=== PATIENT | female | born 1940 | race Caucasian/White ===

== ENCOUNTER 2016-08-17 18:29 | Inpatient (IN) | payer OTHER, BC ==
[2016-08-17 18:52] VITALS: BMI 21.9
--- NOTE | 2016-08-17 19:53 | PDOC ---
History of Present Illness - General History Source: [facility] Records Exam Limitations: Dementia - History of Present Illness Initial Comments: 08/17/16 22:13 76-year-old female with advanced dementia brought in by EMS after having been found on the floor for an unknown period of time and unable to stand due to right leg weakness and deformity. No further history is reported. Patient is unable to cooperate with the detailed H&P due to advanced dementia. REVIEW OF SYSTEMS Unable to obtain due to patient's advanced dementia EXAMINATION CONSTITUTIONAL: Awake and alert, does not follow commands,; in no apparent distress HEAD: Normocephalic; atraumatic EYES: PERRL; EOM intact ENMT: External appears normal; normal oropharynx NECK: Supple; non-tender; no cervical lymphadenopathy CARD: Normal S1, S2; 2/6 se murmur, no rubs, or gallops RESP: Normal chest excursion with respiration; breath sounds clear and equal bilaterally; no wheezes, rhonchi, or rales ABD: Soft, non-distended; non-tender; no palpable organomegaly, no palpable hernias PELVIS: Stable; EXT: Right lower extremity is shortened and externally rotated, with pain on palpation of the proximal femur and pain with an attempted logroll of the right lower extremity; distal pulses intact SKIN: Warm, dry, no rash NEURO: Awake and alert, speech is incoherent, moving upper extremities and left lower extremity without limitation;. <Shiva Reyes - Last Filed: 08/17/16 23:11> <Jared Cerda - Last Filed: 08/17/16 23:45> - General Chief Complaint: Injury Stated Complaint: INJURY Time Seen by Provider: 08/17/16 19:53 Past History - Past Medical History Anemia: No Asthma: Yes Cancer: No Cardiac Disorders: Yes (IRREGULAR HEARTBEAT. CARDIAC CATH 2011.) CVA: No COPD: No CHF: No Dementia: Yes Diabetes: No GI Disorders: No Disorders: Yes (FREQUENT URINATION) HTN: Yes Hypercholesterolemia: Yes Liver Disease: No Seizures: Yes Thyroid Disease: Yes - Surgical History Abdominal Surgery: Yes (TUBAL LIGATION) Appendectomy: No Cardiac Surgery: No Cholecystectomy: No Lung Surgery: No Neurologic Surgery: No Orthopedic Surgery: Yes (BILATERAL KNEE REPLACEMENTS) - Immunization History Immunization Up to Date: Yes - Psycho/Social/Smoking Cessation Hx Anxiety: Yes Suicidal Ideation: No Smoking Status: Yes Smoking History: Never smoked Have you smoked in the past 12 months: No Number of Cigarettes Smoked Daily: 0 Information on smoking cessation initiated: No Hx Alcohol Use: No Drug/Substance Use Hx: No Substance Use Type: None Hx Substance Use Treatment: No <Shiva Reyes - Last Filed: 08/17/16 23:11> <Jared Cerda - Last Filed: 08/17/16 23:45> - Past Medical History Allergies/Adverse Reactions: Allergies Allergy/AdvReac Type Severity Reaction Status Date / Time No Known Allergies Allergy Verified 08/17/16 18:53 Home Medications: Ambulatory Orders Acetaminophen [Tylenol -] 500 mg PO Q4H 08/17/16 Aspirin [ASA -] 81 mg PO DAILY 08/17/16 Atorvastatin Ca [Lipitor] 10 mg PO HS 08/17/16 Donepezil HCl [Aricept -] 10 mg PO DAILY 08/17/16 Ergocalciferol (Vitamin D2) [Vitamin D2] 2,000 unit PO DAILY 08/17/16 Fluticasone Propionate [Flovent Diskus] 100 mcg IH DAILY 08/17/16 Levothyroxine [Synthroid -] 25 mcg PO DAILY 08/17/16 Memantine HCl [Namenda -] 10 mg PO DAILY 08/17/16 Multivitamin [Poly-Vitamin] 1 each PO DAILY 08/17/16 Risperidone [Risperdal -] 0.5 mg PO DAILY 08/17/16 *Physical Exam - Vital Signs Last Vital Signs Temp Pulse Resp BP Pulse Ox 65 17 125/76 100 08/17/16 18:45 08/17/16 18:45 08/17/16 18:45 08/17/16 18:45 <Shiva Reyes - Last Filed: 08/17/16 23:11> - Vital Signs Last Vital Signs Temp Pulse Resp BP Pulse Ox 65 17 125/76 100 08/17/16 18:45 08/17/16 18:45 08/17/16 18:45 08/17/16 18:45 <Jared Cerda - Last Filed: 08/17/16 23:45> Heart Score/ECG Review - ECG Impressions Comment:: 08/17/16 23:45 Normal sinus rhythm at 72 bpm. T wave abnormality, consider lateral ischemia. Abnormal ECG. <Jared Cerda - Last Filed: 08/17/16 23:45> ED Treatment Course - LABORATORY CBC & Chemistry Diagram: 08/17/16 20:35 08/17/16 20:35 <Shiva Reyes - Last Filed: 08/17/16 23:11> - LABORATORY CBC & Chemistry Diagram: 08/17/16 20:35 08/17/16 22:36 - ADDITIONAL ORDERS Additional order review: Laboratory Results 08/17/16 08/17/16 08/17/16 20:35 20:35 20:35 INR 1.20 H Sodium Cancelled Potassium Cancelled Chloride Cancelled Carbon Dioxide Cancelled Anion Gap Cancelled BUN Cancelled Creatinine Cancelled Creat Clearance w eGFR Cancelled Random Glucose Cancelled Calcium Cancelled Total Bilirubin Cancelled AST Cancelled ALT Cancelled Alkaline Phosphatase Cancelled Total Protein Cancelled Albumin Cancelled Urine Color Urine Appearance Urine pH Urine Protein Urine Glucose (UA) Urine Ketones Urine Blood Urine Nitrite Urine Bilirubin Urine Urobilinogen Ur Leukocyte Esterase Blood Type Cancelled Antibody Screen Cancelled Spec Expiration Date Cancelled 08/17/16 20:14 INR Sodium Potassium Chloride Carbon Dioxide Anion Gap BUN Creatinine Creat Clearance w eGFR Random Glucose Calcium Total Bilirubin AST ALT Alkaline Phosphatase Total Protein Albumin Urine Color Yellow Urine Appearance Clear Urine pH 6.0 Urine Protein Negative Urine Glucose (UA) Negative Urine Ketones Negative Urine Blood Negative Urine Nitrite Negative Urine Bilirubin Negative Urine Urobilinogen Negative Ur Leukocyte Esterase Negative Blood Type Antibody Screen Spec Expiration Date 08/17/16 20:35 RBC 4.05 MCV 91.5 MCHC 32.9 RDW 13.9 MPV 8.9 Neutrophils % 76.0 Lymphocytes % 4.0 L D Monocytes % 11.0 H - RADIOLOGY Radiograph Interpretation: 08/17/16 22:28 EXAM#: TYPE/EXAM: RESULT: [id number] CT/HEAD CT WITHOUT CONTRAST Cranial CT without contrast Clinical information: status post fall There is no CT evidence of intracranial injury or calvarial fracture. No definite interval change is noted in comparison to a prior CT study of 01/20/2016. Moderate to marked periventricular and subcortical microvascular ischemic gliosis is seen. There is no discrete infarct. No gross mass lesion is identified. There is no extra- axial fluid collection. Involutional changes are noted with mild ventricular dilatation. Impression: No CT evidence of acute intracranial pathology. Reported By: Carroll Edwards MD 08/17/164 <Jared Cerda - Last Filed: 08/17/16 23:45> Medical Decision Making - Medical Decision Making 08/17/16 23:11 Patient 76-year-old female with advanced dementia who presents with signs and symptoms of acute right hip fracture. Pelvis and hip x-rays reveal a comminuted right intertrochanteric fracture. Patient will require admission for open reduction and internal fixation. Will admit. <Shiva Reyes - Last Filed: 08/17/16 23:11> - Medical Decision Making 08/17/16 22:[address] Talbert placed. Awaiting call back. 08/17/16 22:45 Dr. Talbert called into ER. Case discussed. Admit to hospitalist. <Jared Cerda - Last Filed: 08/17/16 23:45> *DC/Admit/Observation/Transfer - Discharge Dispostion Admit: Yes <Shiva Reyes - Last Filed: 08/17/16 23:11> - Attestations Scribe Attestion: 08/17/16 22:44 Documentation prepared by Jared Cerda, acting as biomedical electronics technician for Shiva Reyes MD. <Jared Cerda - Last Filed: 08/17/16 23:45> Diagnosis at time of Disposition: Fracture of hip, right, closed Qualifiers: Encounter type: initial encounter Qualified Code(s): S72.001A - Fracture of unspecified part of neck of right femur, initial encounter for closed fracture - Referrals Referrals: Kiel Xiong MD [Primary Care Provider] -
[2016-08-17 20:48] LABS: MCH 30.1 pg (25.7-33.7); MCHC 32.9 g/dl (32.0-36.0); MEAN CELL VOLUME 91.5 fl (80-96); MEAN PLT VOLUME 8.9 fl (7.5-11.1); PLATELET COUNT 252 K/MM3 (134-434); RDW 13.9 % (11.6-15.6); WHITE BLOOD COUNT 18.2 K/mm3 (4.0-10.0)
[2016-08-17 21:02] LABS: INR 1.2 (0.82-1.09); PROTHROMBIN TIME (PATIENT) 13.2 SEC (9.98-11.88)
[2016-08-17 21:12] LABS: URINE APPEARANCE CLEAR; URINE BILIRUBIN NEGATIVE (NEGATIVE); URINE BLOOD NEGATIVE (NEGATIVE); URINE COLOR YELLOW; URINE GLUCOSE (UA) NEGATIVE (NEGATIVE); URINE KETONE NEGATIVE (NEGATIVE); URINE LEUK ESTERASE NEGATIVE (NEGATIVE); URINE NITRITE NEGATIVE (NEGATIVE); URINE PROTEIN NEGATIVE (NEGATIVE); URINE UROBILINOGEN NEGATIVE mg/dL (0.2-1.0)
[2016-08-17] MEDS ORDERED: SODIUM CHLORIDE 500 ML IV STA (21:28)
[2016-08-17 21:39] LABS: PLATELET ESTIMATE ADEQUATE (NORMAL)
[2016-08-17 23:21] LABS: ALBUMIN 3.3 g/dl (3.4-5.0); ALK PHOS 122 U/L (45-117); ANION GAP 10 (8-16); BILIRUBIN,TOTAL 0.3 mg/dL (0.2-1.0); CO2 26 mmol/L (21-32); CREATININE 0.6 mg/dL (0.55-1.02); GLUCOSE,RANDOM 129 mg/dL (74-106); SGOT/AST 21 U/L (15-37); SGPT/ALT 31 U/L (12-78); TOT PROT 6.1 g/dl (6.4-8.2)
--- NOTE | 2016-08-17 23:47 | HP ---
CHIEF COMPLAINT: Fall, R- Hip Pain PCP: Dr. Talbert HISTORY OF PRESENT ILLNESS: This is a 76 y/o female with a history of Dementia, Alzheimer's. Who presents to the ED from [facility] [place] for s/p unwitnessed fall, R-hip pain. Patient has Dementia unable to obtain HPI. Per [facility] PCR, patient was found by staff sitting on the floor unable to bear weight at 1530 today. Patient denies pain. ER course was notable for: (1) CT Head- No acute ICH, chronic microvascular changes (2) Xray Pelvis/Hip: Comminuted Right Intertrochanteric Fx (3) WBC 18.2 Recent Travel: None PAST MEDICAL HISTORY: Dementia Alzheimer's Hypothyroidism HLD Asthma GERD PAST SURGICAL HISTORY: Cardiac Catheterization 2012 Bilateral Knee Replacement Tubal Ligation Social History: Smoking: Never Alcohol: None Drugs: None [facility] in [facility], ambulates with walker Family History: Unknown Allergies No Known Allergies Allergy (Verified 08/17/16 18:53) HOME MEDICATIONS: Home Medications Medication Instructions Recorded Acetaminophen [Tylenol -] 500 mg PO Q4H 08/17/16 Aspirin [ASA -] 81 mg PO DAILY 08/17/16 Atorvastatin Ca [Lipitor] 10 mg PO HS 08/17/16 Donepezil HCl [Aricept -] 10 mg PO DAILY 08/17/16 Ergocalciferol (Vitamin D2) 2,000 unit PO DAILY 08/17/16 [Vitamin D2] Fluticasone Propionate [Flovent 100 mcg IH DAILY 08/17/16 Diskus] Levothyroxine [Synthroid -] 25 mcg PO DAILY 08/17/16 Memantine HCl [Namenda -] 10 mg PO DAILY 08/17/16 Multivitamin [Poly-Vitamin] 1 each PO DAILY 08/17/16 Risperidone [Risperdal -] 0.5 mg PO DAILY 08/17/16 REVIEW OF SYSTEMS Unable to obtain ( per [facility]/ED record) CONSTITUTIONAL: Absent: fever, chills, diaphoresis, generalized weakness, malaise, loss of appetite, weight change HEENT: Absent: rhinorrhea, nasal congestion, throat pain, throat swelling, difficulty swallowing, mouth swelling, ear pain, eye pain, visual changes CARDIOVASCULAR: Absent: chest pain, syncope, palpitations, irregular heart rate, lightheadedness , peripheral edema RESPIRATORY: Absent: cough, shortness of breath, dyspnea with exertion, orthopnea, wheezing, stridor, hemoptysis GASTROINTESTINAL: Absent: abdominal pain, abdominal distension, nausea, vomiting, diarrhea, constipation, melena, hematochezia GENITOURINARY: Absent: dysuria, frequency, urgency, hesitancy, hematuria, flank pain, genital pain MUSCULOSKELETAL: right hip pain Absent: myalgia, arthralgia, joint swelling, back pain, neck pain SKIN: Absent: rash, itching, pallor HEMATOLOGIC/IMMUNOLOGIC: Absent: easy bleeding, easy bruising, lymphadenopathy, frequent infections ENDOCRINE: Absent: unexplained weight gain, unexplained weight loss, heat intolerance, cold intolerance NEUROLOGIC: unsteady gait Absent: headache, focal weakness or paresthesias, dizziness, seizure, mental status changes, bladder or bowel incontinence PSYCHIATRIC: Absent: anxiety, depression, suicidal or homicidal ideation, hallucinations. PHYSICAL EXAMINATION Vital Signs - 24 hr 08/17/16 18:45 Pulse Rate 65 Respiratory 17 Rate Blood Pressure 125/76 O2 Sat by Pulse 100 Oximetry (%) GENERAL: Awake, alert, and oriented to name only, in no acute distress. HEAD: Normal with no signs of trauma. EYES: Pupils equal, round and reactive to light, extraocular movements intact, sclera anicteric, conjunctiva clear. No lid lag. EARS, NOSE, THROAT: Ears normal, nares patent, oropharynx clear without exudates. Moist mucous membranes. NECK: Normal range of motion, supple without lymphadenopathy, JVD, or masses. LUNGS: Breath sounds equal, clear to auscultation bilaterally. No wheezes, and no crackles. No accessory muscle use. HEART: Regular rate and rhythm, normal S1 and S2 without murmur, rub or gallop. ABDOMEN: Soft, nontender, not distended, normoactive bowel sounds, no guarding, no rebound, no masses. No hepatomegaly or splenomegaly. MUSCULOSKELETAL: Normal range of motion RUE, LUE, LLE joints. No CVA tenderness. + bony deformities, R- hip tenderness, LROM RLE, + external rotation of R-leg, shortening UPPER EXTREMITIES: 2+ pulses, warm, well-perfused. No cyanosis. No clubbing. No peripheral edema. LOWER EXTREMITIES: 2+ pulses, warm, well-perfused. No calf tenderness. No peripheral edema. NEUROLOGICAL: Cranial nerves II-XII intact. Normal speech. Gait not observed. PSYCHIATRIC: Cooperative. Good eye contact. Appropriate mood and affect. SKIN: Warm, dry, normal turgor, no rashes or lesions noted, normal capillary refill. Laboratory Results - last 24 hr 08/17/16 08/17/16 08/17/16 20:14 20:35 20:35 WBC 18.2 H D RBC 4.05 Hgb 12.2 Hct 37.0 MCV 91.5 MCH 30.1 MCHC 32.9 RDW 13.9 Plt Count 252 MPV 8.9 Neutrophils % 76.0 Lymphocytes % 4.0 L D Monocytes % 11.0 H Band Neutrophils 9.0 Differential Comment Manual diff done Platelet Estimate Adequate Morphology Comment Slide scanned INR 1.20 H Sodium Potassium Chloride Carbon Dioxide Anion Gap BUN Creatinine Creat Clearance w eGFR Random Glucose Calcium Total Bilirubin AST ALT Alkaline Phosphatase Total Protein Albumin Urine Color Yellow Urine Appearance Clear Urine pH 6.0 Ur Specific [place] 1.020 Urine Protein Negative Urine Glucose (UA) Negative Urine Ketones Negative Urine Blood Negative Urine Nitrite Negative Urine Bilirubin Negative Urine Urobilinogen Negative Ur Leukocyte Esterase Negative Blood Type Antibody Screen Spec Expiration Date 08/17/16 08/17/16 20:35 20:35 WBC RBC Hgb Hct MCV MCH MCHC RDW Plt Count MPV Neutrophils % Lymphocytes % Monocytes % Band Neutrophils Differential Comment Platelet Estimate Morphology Comment INR Sodium Cancelled Potassium Cancelled Chloride Cancelled Carbon Dioxide Cancelled Anion Gap Cancelled BUN Cancelled Creatinine Cancelled Creat Clearance w eGFR Cancelled Random Glucose Cancelled Calcium Cancelled Total Bilirubin Cancelled AST Cancelled ALT Cancelled Alkaline Phosphatase Cancelled Total Protein Cancelled Albumin Cancelled Urine Color Urine Appearance Urine pH Ur Specific [place] Urine Protein Urine Glucose (UA) Urine Ketones Urine Blood Urine Nitrite Urine Bilirubin Urine Urobilinogen Ur Leukocyte Esterase Blood Type Cancelled Antibody Screen Cancelled Spec Expiration Date Cancelled - RADIOLOGY Radiograph Interpretation: 08/17/16 22:28 EXAM#: TYPE/EXAM: RESULT: [id number] CT/HEAD CT WITHOUT CONTRAST Cranial CT without contrast Clinical information: status post fall There is no CT evidence of intracranial injury or calvarial fracture. No definite interval change is noted in comparison to a prior CT study of 01/20/2016. Moderate to marked periventricular and subcortical microvascular ischemic gliosis is seen. There is no discrete infarct. No gross mass lesion is identified. There is no extra- axial fluid collection. Involutional changes are noted with mild ventricular dilatation. Impression: No CT evidence of acute intracranial pathology. Reported By: Carroll Edwards MD 08/17/16 [id number] ASSESSMENT/PLAN: This is a 76 y/o female with a PMHx of: Dementia, Alzheimer's, Hypothyroid, HLD , Asthma, GERD. Admit to M/S Right Hip Fracture for further evaluation of their emergent condition. Problems: 1. Right Hip Fx 2. Fall 3. Leukocytosis 4. Dementia 5. Alzheimer's 6. Hypothyroid 7. HLD 8. Asthma 9. GERD Plan: Ortho: Right Hip Fracture - Likely secondary to fall - Hip- Acute Fx - Appreciate Ortho consult - Bedrest - Pain Mgmt- Morphine, Tylenol - Monitor CBC, BMP - Monitor vitals - [facility] - EKG- reviewed - Will need Cardiology Consult for clearance - Fall Precautions - PT - DVT Prohylaxis Fall - unwitnessed - Fall Precautions 3. Leukocytosis - Likely inflammatory process vs infection (viral/bacterial) - Patient is currently afebrile - Monitor CBC 4. Psych: Dementia//Alzheimer's - Continue Namenda, Aricept, Risperdal 5. Hypothyroid - Continue Levothyroxine - TSH in am 6. Hyperlipidemia - Continue Lipitor - Monitor LFTs 7. Asthma - Continue Flovent HFA - Albuterol neb prn SOB 8. GERD - Not on medication - PPI prn 9. FEN - D51/2NS 42cc/hr - Replete lytes prn - Keep NPO until cleared by Ortho 10. DVT Prophylaxis - SCDs - Heparin SQ Code Status: Full Code Dispo: Requires Inpatient Care Problem List - Problem (1) Fracture of hip, right, closed Code(s): S72.001A - FRACTURE OF UNSP PART OF NECK OF RIGHT FEMUR, INIT Qualifiers: Encounter type: initial encounter Qualified Code(s): S72.001A - Fracture of unspecified part of neck of right femur, initial encounter for closed fracture (2) Fall Code(s): W19.XXXA - UNSPECIFIED FALL, INITIAL ENCOUNTER (3) Leukocytosis Code(s): D72.829 - ELEVATED WHITE BLOOD CELL COUNT, UNSPECIFIED (4) Dementia Code(s): F03.90 - UNSPECIFIED DEMENTIA WITHOUT BEHAVIORAL DISTURBANCE (5) Asthma Code(s): J45.909 - UNSPECIFIED ASTHMA, UNCOMPLICATED (6) Hip arthritis Code(s): M19.90 - UNSPECIFIED OSTEOARTHRITIS, UNSPECIFIED SITE (7) Hypothyroid Code(s): E03.9 - HYPOTHYROIDISM, UNSPECIFIED (8) DVT prophylaxis Code(s): THN4378 - Visit type - Emergency Visit Emergency Visit: Yes ED Registration Date: 08/17/16 Care time: The patient presented to the Emergency Department on the above date and was hospitalized for further evaluation of their emergent condition. - New Patient This patient is new to me today: Yes Date on this admission: 08/17/16 - Critical Care Critical Care patient: No
[2016-08-18] MEDS ORDERED: ACETAMINOPHEN 325 MG TABLET (FP) PO PRN (02:53)
[2016-08-18] MEDS ORDERED: morphine CARPU-JECT 2 MG/1 ML DISP.SYRIN IVPUSH PRN (02:54)
[2016-08-18] MEDS ORDERED: DEXTROSE 5%-0.45% SALINE 1,000 ML IV SCH (03:30)
[2016-08-18] MEDS: LEVOTHYROXINE NA 25 MCG TABLET (FP) PO SCH (06:54)
[2016-08-18] MEDS: risperiDONE 0.5 MG TABLET (FP) PO SCH ×3 (06:54→21:45)
[2016-08-18 07:18] LABS: BASOPHIL 0.3 % (0-2.0); EOSINOPHIL 0.5 % (0-4.5); MCHC 34.2 g/dl (32.0-36.0); MEAN CELL VOLUME 90.8 fl (80-96); MEAN PLT VOLUME 8.8 fl (7.5-11.1); NEUTROPHILS 75.2 % (42.8-82.8); PLATELET COUNT 203 K/MM3 (134-434); RDW 14.1 % (11.6-15.6); WHITE BLOOD COUNT 9.6 K/mm3 (4.0-10.0)
[2016-08-18 07:52] LABS: ANION GAP 7 (8-16); CALCIUM 8.7 mg/dL (8.5-10.1); CO2 28 mmol/L (21-32); CREATININE 0.5 mg/dL (0.55-1.02); GLUCOSE,RANDOM 115 mg/dL (74-106)
[2016-08-18] MEDS ORDERED: ENOXAPARIN NA (PORCINE) 40 MG/0.4 ML DISP.SYRIN SQ SCH (10:00)
[2016-08-18] MEDS: MEMANTINE HCL 10 MG TABLET (FP) PO SCH ×2 (11:24→21:46)
[2016-08-18] MEDS: DEXTROSE 5%-0.45% SALINE 1,000 ML IV SCH ×2 (12:04→18:34)
--- NOTE | 2016-08-18 12:37 | PN ---
Physical Exam: SUBJECTIVE: Patient seen and examined at the bedside. In no acute distress. OBJECTIVE: Ortho consulted with Dr. Mena Vital Signs Period Temp Pulse Resp BP Sys/Christie Pulse Ox Last 24 Hr 97.8 F-97.9 F 65-100 17-18 98-114/63-68 GENERAL: Asleep, easily arousable HEAD: Normal with no signs of trauma. EYES: PERRL, extraocular movements intact, sclera anicteric, conjunctiva clear. No ptosis. ENT: Ears normal, nares patent, oropharynx clear without exudates, moist mucous membranes. NECK: Trachea midline, full range of motion, supple. LUNGS: Anterior lung sounds clear to auscultation HEART: regular rate and rhythm ABDOMEN: Soft, nontender, nondistended, normoactive bowel sounds, no guarding, no rebound, no hepatosplenomegaly, no masses. EXTREMITIES: external rotation of right extremity with shortening s/p fall NEUROLOGICAL: Normal speech, gait not observed. PSYCH: Normal mood, normal affect. SKIN: Warm, dry, normal turgor, no rashes or lesions noted Laboratory Results - last 24 hr 08/18/16 08/18/16 06:20 06:20 WBC 9.6 D RBC 3.48 L Hgb 10.8 D Hct 31.6 L MCV 90.8 MCH 31.0 MCHC 34.2 RDW 14.1 Plt Count 203 MPV 8.8 Neutrophils % 75.2 Lymphocytes % 11.1 D Monocytes % 12.9 H Eosinophils % 0.5 Basophils % 0.3 Sodium 143 Potassium 4.2 Chloride 108 H Carbon Dioxide 28 Anion Gap 7 L BUN 15 D Creatinine 0.5 L Random Glucose 115 H Calcium 8.7 Active Medications Generic Name Dose Route Start Last Admin Trade Name Freq PRN Reason Stop Dose Admin Acetaminophen 650 mg 08/18/16 02:53 Tylenol - PO Q6H PRN FEVER OR PAIN Atorvastatin Calcium 10 mg 08/18/16 22:00 Lipitor - PO HS KOKI Donepezil HCl 10 mg 08/18/16 22:00 Aricept - PO HS KOKI Enoxaparin Sodium 40 mg 08/18/16 10:00 08/18/16 12:03 Lovenox - SQ Not Given DAILY KOKI Dextrose/Sodium Chloride 1,000 mls @ 100 mls/hr 08/18/16 11:41 08/18/16 12:04 D5-1/2ns - IV 100 mls/hr ASDIR KOKI Administration Levothyroxine Sodium 12.5 mcg 08/18/16 07:00 08/18/16 06:54 Synthroid - PO 12.5 mcg DAILY@0700 KOKI Administration Memantine 10 mg 08/18/16 10:00 08/18/16 11:24 Namenda - PO Not Given BID KOKI Morphine Sulfate 1 mg 08/18/16 02:54 08/18/16 03:12 Morphine Injection - IVPUSH 1 mg Q6H PRN Administration PAIN LEVEL 6-10 Risperidone 0.5 mg 08/18/16 06:00 08/18/16 06:54 Risperdal - PO 0.5 mg TID KOKI Administration ASSESSMENT/PLAN: Patient is a 76 year old female from [facility] with a significant past medical history of advanced dementia, cardiac catherization 2011, bilateral knee replacement, tubal ligation, hypothyroidism, HLD, asthma and GERD. She was brought in by EMS after having been found on the floor for an unknown period of time. She was noted to be unable to stand due to right leg pain, weakness and deformity. A hip/pelvis CT was performed which shows an acute intertrochanteric fracture. Imagin08/17/[address]: No evidence of acute intracranial pathology 08/17/2016 Hip/Pelvis CT 08/17/2016: acute right intertrochanteric fracture 08/17/2016 Chest Xray: no evidence of acute pulmonary disease Orthopedics: Acute intertrochanteric fracture s/p fall Assessment/Plan: Unwitnessed fall at nursing facility For surgical procedure for right hip today with Dr. Mena Patient is NPO, IVF fluids, vitals stable, labs reviewed EKG on 08/17/2016 shows NSR with t wave abnormality, and compared to EKG of [address]&T wave abnormality is seen with a t wave inversion on inferior leads, prolonged QT not evident of EKG of 08/17/2016 Troponin x 1 negative Hematology: Assessment/Plan: Leukocytosis now resolved 18.2>9.6 Likely secondary to acute inflammation Remains afebrile UA negative, UC pending Blood cultures ordered Cardiology: Cardiac catherization 2011 Assessment/Plan:On ASA 81mg daily, will hold pending surgical repair EKG on 08/17/2016 shows NSR with t wave abnormality, and compared to EKG of [address]&T wave abnormality is seen with a t wave inversion on inferior leads, prolonged QT not evident of EKG of 08/17/2016 Troponin negative x 1 Disposition: For surgical intervention today with Dr. Mena. Visit type - Emergency Visit Emergency Visit: Yes ED Registration Date: 08/17/16 Care time: The patient presented to the Emergency Department on the above date and was hospitalized for further evaluation of their emergent condition. - New Patient This patient is new to me today: Yes Date on this admission: 08/18/16 - Critical Care Critical Care patient: No - Discharge Referral Referred to [facility] Med P.C.: No
--- NOTE | 2016-08-18 13:10 | EKG ---
Test Reason : Blood Pressure : / mmHG Vent. Rate : 073 BPM Atrial Rate : 073 BPM P-R Int : 150 ms QRS Dur : 082 ms QT Int : 422 ms P-R-T Axes : 070 065 148 degrees QTc Int : 464 ms NORMAL SINUS RHYTHM T WAVE ABNORMALITY, CONSIDER LATERAL ISCHEMIA ABNORMAL ECG NO PREVIOUS ECGS AVAILABLE Confirmed by LILI TRISTAN MD ([id number]) on 08/18/2016 1:10:17 PM Referred By: Confirmed By:LILI TRISTAN MD
--- NOTE | 2016-08-18 15:19 | CONSULT ---
Consult - text type - Consultation Consultation Note: S: 76 y/o female with a PMHx significant for Dementia, Alzheimer's, Hypothyroid , HLD, CAD (s/p cardiac cath 2011 on ASA), Asthma, GERD admitted s/p unwitnessed fall at nursing facility. Unable to obtain hx from patient. In no distress. Patient's daughter states that she ambulates without assistance at baseline. Had a L hip IM nail placement last year. No previous R hip injury/ surgery. O: Vital Signs Temperature 99.5 F 08/18/16 14:31 Pulse Rate 69 08/18/16 14:31 Respiratory Rate 16 08/18/16 14:31 Blood Pressure 117/63 08/18/16 14:31 O2 Sat by Pulse Oximetry (%) 95 08/18/16 09:00 NAD. VSS. Afebrile. Laying comfortably in flat bed. R hip exam: No deformities noted. No skin lesions. Mild tenderness greater trochanter. Non-tender anteriorly over the hip. Limited ROM secondary to pain. EHL/FHL intact. NVID. R hip/pelvis x-ray images and report reviewed demonstrating an intertrochanter fracture A/P: 76 y/o female with a PMHx significant for Dementia, Alzheimer's, Hypothyroid, HLD, CAD (s/p cardiac cath 2011 on ASA), Asthma, GERD admitted s/p unwitnessed fall at nursing facility with R IT fx -I spoke to the patient's daughter regarding today's findings. Reviewed that there is a hip fracture present. Recommended treatment with placement of an IM nail. -I reviewed general surgical risks including DVT/PE, CVA, ACS, . I reviewed specific surgical risks including non-union, mal-union, post-operative pain, infection, hardware failure. -Patient's daughter elected to proceed. -Will plan for case to be added on tomorrow with Dr. Mena or Dr. Guillermo. -NPO at midnight -Hold ASA until procedure -NWB until procedure -Case discussed with Dr. Mena who was in agreement with the above clinical treatment plan.
[2016-08-18] MEDS ORDERED: PT OWN MED DRAWER 7, Y5N ONE (20:37)
[2016-08-18] MEDS ORDERED: ATORVASTATIN CA 10 MG TABLET (FP) PO SCH (22:00)
[2016-08-18] MEDS ORDERED: DONEPEZIL HCL 10 MG TABLET (FP) PO SCH (22:00)
[2016-08-19] MEDS: DEXTROSE 5%-0.45% SALINE 1,000 ML IV SCH ×2 (04:22→22:11)
[2016-08-19] MEDS ORDERED: PT OWN MED DRAWER 7, Y5N ONE (06:36)
[2016-08-19] MEDS: risperiDONE 0.5 MG TABLET (FP) PO SCH ×3 (06:50→22:31)
[2016-08-19] MEDS: LEVOTHYROXINE NA 25 MCG TABLET (FP) PO SCH (06:51)
[2016-08-19 09:17] LABS: BASOPHIL 0.3 % (0-2.0); EOSINOPHIL 1.9 % (0-4.5); MCH 31.4 pg (25.7-33.7); MCHC 34.1 g/dl (32.0-36.0); MEAN CELL VOLUME 91.8 fl (80-96); MEAN PLT VOLUME 8.7 fl (7.5-11.1); NEUTROPHILS 72.2 % (42.8-82.8); PLATELET COUNT 177 K/MM3 (134-434); WHITE BLOOD COUNT 9.4 K/mm3 (4.0-10.0)
[2016-08-19 09:35] LABS: ALBUMIN 2.6 g/dl (3.4-5.0); ALK PHOS 94 U/L (45-117); ANION GAP 5 (8-16); BILIRUBIN,TOTAL 0.4 mg/dL (0.2-1.0); CALCIUM 8.1 mg/dL (8.5-10.1); CO2 28 mmol/L (21-32); CREATININE 0.4 mg/dL (0.55-1.02); GLUCOSE,RANDOM 123 mg/dL (74-106); SGOT/AST 15 U/L (15-37); SGPT/ALT 22 U/L (12-78); TOT PROT 5.2 g/dl (6.4-8.2)
[2016-08-19] MEDS: MEMANTINE HCL 10 MG TABLET (FP) PO SCH ×2 (10:00→22:31)
--- NOTE | 2016-08-19 15:06 | PN ---
Physical Exam: SUBJECTIVE: Patient seen and examined at the bedside. Denies pain. OBJECTIVE: Patient scheduled for right hip gamma nail today Resume Lovenox tonight Vital Signs Period Temp Pulse Resp BP Sys/Christie Pulse Ox Last 24 Hr 97 F-97.9 F 67-102 18-20 125-136/62-70 94-95 GENERAL: Asleep, easily arousable HEAD: Normal with no signs of trauma. EYES: PERRL, extraocular movements intact, sclera anicteric, conjunctiva clear. No ptosis. ENT: Ears normal, nares patent, oropharynx clear without exudates, moist mucous membranes. NECK: Trachea midline, full range of motion, supple. LUNGS: Anterior lung sounds clear to auscultation HEART: regular rate and rhythm ABDOMEN: Soft, nontender, nondistended, normoactive bowel sounds, no guarding, no rebound, no hepatosplenomegaly, no masses. EXTREMITIES: external rotation of right extremity with shortening s/p fall NEUROLOGICAL: Normal speech, gait not observed. PSYCH: Normal mood, normal affect. SKIN: Warm, dry, normal turgor, no rashes or lesions noted Laboratory Results - last 24 hr 08/19/16 08/19/16 08:50 08:50 WBC 9.4 RBC 3.25 L Hgb 10.2 L Hct 29.8 L MCV 91.8 MCH 31.4 MCHC 34.1 RDW 14.0 Plt Count 177 MPV 8.7 Neutrophils % 72.2 Lymphocytes % 11.8 Monocytes % 13.8 H Eosinophils % 1.9 D Basophils % 0.3 Sodium 141 Potassium 3.8 Chloride 108 H Carbon Dioxide 28 Anion Gap 5 L BUN 8 D Creatinine 0.4 L Creat Clearance w eGFR > 60 Random Glucose 123 H Calcium 8.1 L Total Bilirubin 0.4 D AST 15 D ALT 22 D Alkaline Phosphatase 94 D Total Protein 5.2 L Albumin 2.6 L D Active Medications Generic Name Dose Route Start Last Admin Trade Name Freq PRN Reason Stop Dose Admin Acetaminophen 650 mg 08/18/16 02:53 08/18/16 23:40 Tylenol - PO 650 mg Q6H PRN Administration FEVER OR PAIN Atorvastatin Calcium 10 mg 08/18/16 22:00 08/18/16 21:46 Lipitor - PO 10 mg HS KOKI Administration Donepezil HCl 10 mg 08/18/16 22:00 08/18/16 21:45 Aricept - PO 10 mg HS KOKI Administration Enoxaparin Sodium 40 mg 08/18/16 10:00 08/18/16 12:03 Lovenox - SQ Not Given DAILY KOKI Dextrose/Sodium Chloride 1,000 mls @ 100 mls/hr 08/18/16 11:41 08/19/16 04:22 D5-1/2ns - IV 100 mls/hr ASDIR KOKI Administration Levothyroxine Sodium 12.5 mcg 08/18/16 07:00 08/19/16 06:51 Synthroid - PO 12.5 mcg DAILY@0700 KOKI Administration Memantine 10 mg 08/18/16 10:00 08/19/16 10:00 Namenda - PO Not Given BID KOKI Morphine Sulfate 1 mg 08/18/16 02:54 08/18/16 03:12 Morphine Injection - IVPUSH 1 mg Q6H PRN Administration PAIN LEVEL 6-10 Risperidone 0.5 mg 08/18/16 06:00 08/19/16 13:37 Risperdal - PO Not Given TID KOKI ASSESSMENT/PLAN: Patient is a 76 year old female from [facility] with a significant past medical history of advanced dementia, cardiac catherization 2011, bilateral knee replacement, tubal ligation, hypothyroidism, HLD, asthma and GERD. She was brought in by EMS after having been found on the floor for an unknown period of time. She was noted to be unable to stand due to right leg pain, weakness and deformity. A hip/pelvis CT was performed which shows an acute intertrochanteric fracture. Imagin08/17/[address]: No evidence of acute intracranial pathology 08/17/2016 Hip/Pelvis CT 08/17/2016: acute right intertrochanteric fracture 08/17/2016 Chest Xray: no evidence of acute pulmonary disease Orthopedics: Acute intertrochanteric fracture s/p fall on 08/17/16 Assessment/Plan: Unwitnessed fall at nursing facility For surgical procedure for right hip today with Dr. Mena Patient is NPO, IVF fluids, vitals stable, labs reviewed EKG on 08/17/2016 shows NSR with t wave abnormality, and compared to EKG of [address]&T wave abnormality is seen with a t wave inversion on inferior leads, prolonged QT not evident of EKG of 08/17/2016 Troponin x 1 negative Hematology: Assessment/Plan: Leukocytosis now resolved 18.2>9.4 Likely secondary to acute inflammation Remains afebrile UA negative, UC pending Blood cultures pending Cardiology: Cardiac catherization 2011 Assessment/Plan:On ASA 81mg daily, will hold pending surgical repair EKG on 08/17/2016 shows NSR with t wave abnormality, and compared to EKG of [address]&T wave abnormality is seen with a t wave inversion on inferior leads, prolonged QT not evident of EKG of 08/17/2016 Troponin negative x 1 F.E.N. Fluids: d5 1/2 @100cc/hr Electrolytes: within normal limits Nutrition: NPO for now, soft diet after procedure Prophylaxis: DVT: Resume Lovenox tonight after procedure GI: colace, miralax Disposition: For surgical intervention today with Dr. Mena. Visit type - Emergency Visit Emergency Visit: Yes ED Registration Date: 08/17/16 Care time: The patient presented to the Emergency Department on the above date and was hospitalized for further evaluation of their emergent condition. - New Patient This patient is new to me today: No - Critical Care Critical Care patient: No - Discharge Referral Referred to [facility] Med P.C.: No
[2016-08-19] MEDS ORDERED: MIDAZOLAM HCL 2 MG/2 ML SINGLE DOSE VIAL ONE (15:43)
[2016-08-19] MEDS ORDERED: ceFAZolin SODIUM 1 GM VIAL ONE (15:51)
[2016-08-19] MEDS ORDERED: PHENYLEPHRINE HCL 10 MG/1 ML SINGLE DOSE VIAL ONE (15:54)
[2016-08-19] MEDS ORDERED: ceFAZolin SODIUM 1 GM VIAL IVPB ONE (15:55)
--- NOTE | 2016-08-19 16:57 | OP ---
Operative Note - Note: Operative Date: 08/19/16 Pre-Operative Diagnosis: Right IT fx Operation: right hip IM nail Post-Operative Diagnosis: Same as Pre-op Surgeon: Luciano Guilelrmo Claims Clerk: Nahum Garcia Anesthesiologist/COOK RESTAURANT: Inderjit Boston Anesthesia: Spinal Estimated Blood Loss (mls): 150 Operative Report Dictated: Yes
[2016-08-19] MEDS ORDERED: ONDANSETRON 4 MG/2 ML VIAL IVPUSH PRN (16:59)
[2016-08-19] MEDS ORDERED: morphine CARPU-JECT 2 MG/1 ML DISP.SYRIN IVPUSH PRN (17:10)
[2016-08-19] MEDS: CEFAZOLIN (PRE-DOCKED) 50 ML IVPB SCH (18:31)
[2016-08-19] MEDS: LACTATED RINGERS SOLUTION 1,000 ML IV SCH (22:10)
[2016-08-19] MEDS: DOCUSATE SODIUM 100 MG CAPSULE (FP) PO SCH (22:30)
[2016-08-19] MEDS: DONEPEZIL HCL 10 MG TABLET (FP) PO SCH (22:31)
[2016-08-19] MEDS: CALCIUM 500MG/VIT-D 200 UNITS COMBO TABLET (FP) PO SCH (22:31)
[2016-08-19] MEDS: ATORVASTATIN CA 10 MG TABLET (FP) PO SCH (22:31)
[2016-08-20] MEDS: CEFAZOLIN (PRE-DOCKED) 50 ML IVPB SCH ×2 (01:46→10:55)
[2016-08-20] MEDS: ACETAMINOPHEN 325 MG TABLET (FP) PO PRN (02:00)
[2016-08-20] MEDS: DEXTROSE 5%-0.45% SALINE 1,000 ML IV SCH ×3 (02:50→17:54)
[2016-08-20] MEDS: LEVOTHYROXINE NA 25 MCG TABLET (FP) PO SCH (06:15)
[2016-08-20] MEDS: risperiDONE 0.5 MG TABLET (FP) PO SCH ×3 (06:15→21:24)
[2016-08-20] MEDS: DOCUSATE SODIUM 100 MG CAPSULE (FP) PO SCH ×4 (06:18→21:30)
[2016-08-20 07:39] LABS: BASOPHIL 0.3 % (0-2.0); EOSINOPHIL 1.5 % (0-4.5); MCH 31.7 pg (25.7-33.7); MCHC 34.9 g/dl (32.0-36.0); MEAN PLT VOLUME 8.7 fl (7.5-11.1); NEUTROPHILS 71.6 % (42.8-82.8); PLATELET COUNT 167 K/MM3 (134-434); RDW 14.2 % (11.6-15.6); WHITE BLOOD COUNT 10.5 K/mm3 (4.0-10.0)
[2016-08-20 08:11] LABS: ALBUMIN 2.3 g/dl (3.4-5.0); ALK PHOS 81 U/L (45-117); ANION GAP 6 (8-16); BILIRUBIN,TOTAL 0.6 mg/dL (0.2-1.0); CO2 28 mmol/L (21-32); CREATININE 0.5 mg/dL (0.55-1.02); GLUCOSE,RANDOM 121 mg/dL (74-106); SGOT/AST 20 U/L (15-37); SGPT/ALT 21 U/L (12-78); TOT PROT 4.7 g/dl (6.4-8.2)
[2016-08-20] MEDS: FERROUS SO4 325 MG TABLET (FP) PO SCH ×2 (08:36→17:13)
[2016-08-20] MEDS: ENOXAPARIN NA (PORCINE) 40 MG/0.4 ML DISP.SYRIN SQ SCH (10:55)
[2016-08-20] MEDS: CALCIUM 500MG/VIT-D 200 UNITS COMBO TABLET (FP) PO SCH ×2 (10:55→21:24)
[2016-08-20] MEDS: MEMANTINE HCL 10 MG TABLET (FP) PO SCH ×2 (10:55→21:24)
--- NOTE | 2016-08-20 13:10 | PN ---
Progress Note (short form) - Note Progress Note: ANESTHESIA POST OP NOTE: Patient seen at bedside. s/p Right gamma nailing of hip under spinal anesthesia and mild sedation post op day one. Patient appears back to mental baseline, confused and non cooperative, unable to answer questions about location or quality of pain, no apparent adverse anesthetic events. Motor function has returned. No further intervention from the department of anesthesia.
--- NOTE | 2016-08-20 15:14 | PN ---
Physical Exam: SUBJECTIVE: Patient seen and examined at the bedside, denies pain. OBJECTIVE: POD#1 right hip IM nail surgical repair Vital Signs Period Temp Pulse Resp BP Sys/Christie Pulse Ox Last 24 Hr 97.8 F-101.2 F 70-111 14-20 90-133/48-91 95-100 GENERAL: Asleep, easily arousable HEAD: Normal with no signs of trauma. EYES: PERRL, extraocular movements intact, sclera anicteric, conjunctiva clear. No ptosis. ENT: Ears normal, nares patent, oropharynx clear without exudates, moist mucous membranes. NECK: Trachea midline, full range of motion, supple. LUNGS: Anterior lung sounds clear to auscultation HEART: regular rate and rhythm ABDOMEN: Soft, nontender, nondistended, normoactive bowel sounds, no guarding, no rebound, no hepatosplenomegaly, no masses. EXTREMITIES: POD#1 right hip IM nail surgical repair NEUROLOGICAL: Normal speech, gait not observed. PSYCH: Normal mood, normal affect. SKIN: Warm, dry, normal turgor, no rashes or lesions noted Laboratory Results - last 24 hr 08/20/16 08/20/16 06:00 06:00 WBC 10.5 H RBC 2.75 L Hgb 8.7 L D Hct 25.0 L D MCV 91.0 MCH 31.7 MCHC 34.9 RDW 14.2 Plt Count 167 MPV 8.7 Neutrophils % 71.6 Lymphocytes % 12.9 Monocytes % 13.7 H Eosinophils % 1.5 Basophils % 0.3 Sodium 140 Potassium 3.8 Chloride 106 Carbon Dioxide 28 Anion Gap 6 L BUN 11 D Creatinine 0.5 L D Creat Clearance w eGFR > 60 Random Glucose 121 H Calcium 8.0 L Total Bilirubin 0.6 D AST 20 D ALT 21 Alkaline Phosphatase 81 Total Protein 4.7 L Albumin 2.3 L Active Medications Generic Name Dose Route Start Last Admin Trade Name Freq PRN Reason Stop Dose Admin Acetaminophen 650 mg 08/19/16 17:10 08/20/16 02:00 Tylenol - PO 650 mg Q6H PRN Administration FEVER OR PAIN Atorvastatin Calcium 10 mg 08/19/16 22:00 08/19/16 22:31 Lipitor - PO 10 mg HS KOKI Administration Calcium Carbonate/Cholecalciferol 1 tab 08/19/16 22:00 08/20/16 10:55 Os-Constantino 500+D - PO 1 tab BID KOKI Administration Docusate Sodium 100 mg 08/19/16 22:00 08/20/16 13:24 Colace - PO Not Given TID KOKI Donepezil HCl 10 mg 08/19/16 22:00 08/19/16 22:31 Aricept - PO 10 mg HS KOKI Administration Enoxaparin Sodium 40 mg 08/20/16 10:00 08/20/16 10:55 Lovenox - SQ 40 mg DAILY KOKI Administration Fentanyl 25 mcg 08/19/16 16:59 08/19/16 17:40 Sublimaze Injection - IVPUSH 08/22/16 17:00 25 mcg [id number] PRN Administration PAIN Ferrous Sulfate 325 mg 08/20/16 08:00 08/20/16 08:36 Feosol - PO 325 mg BIDWM KOKI Administration Cefazolin Sodium 50 mls @ 100 mls/hr 08/19/16 18:00 08/20/16 10:55 Ancef 1gm Ivpb (Pre-Docked) IVPB 08/20/16 16:59 100 mls/hr Q8H-IV KOKI Administration Lactated Ringer's 1,000 mls @ 75 mls/hr 08/19/16 17:00 08/19/16 22:10 Lactated Ringers Solution IV Not Given ASDIR KOKI Dextrose/Sodium Chloride 1,000 mls @ 100 mls/hr 08/19/16 17:10 08/20/16 11:21 D5-1/2ns - IV 100 mls/hr ASDIR KOKI Administration Levothyroxine Sodium 12.5 mcg 08/20/16 07:00 08/20/16 06:15 Synthroid - PO 12.5 mcg DAILY@0700 KOKI Administration Memantine 10 mg 08/19/16 22:00 08/20/16 10:55 Namenda - PO 10 mg BID KOKI Administration Morphine Sulfate 1 mg 08/19/16 17:10 Morphine Injection - IVPUSH Q6H PRN PAIN LEVEL 6-10 Risperidone 0.5 mg 08/19/16 22:00 08/20/16 13:24 Risperdal - PO 0.5 mg TID KOKI Administration ASSESSMENT/PLAN: Patient is a 76 year old female from [facility] with a significant past medical history of advanced dementia, cardiac catherization 2011, bilateral knee replacement, tubal ligation, hypothyroidism, HLD, asthma and GERD. She was brought in by EMS after having been found on the floor for an unknown period of time. She was noted to be unable to stand due to right leg pain, weakness and deformity. A hip/pelvis CT was performed which shows an acute intertrochanteric fracture. Imagin08/17/[address]: No evidence of acute intracranial pathology 08/17/2016 Hip/Pelvis CT 08/17/2016: acute right intertrochanteric fracture 08/17/2016 Chest Xray: no evidence of acute pulmonary disease Orthopedics: Acute intertrochanteric fracture s/p fall on 08/17/16 - POD#1 right hip IM nail surgical repair Assessment/Plan: Physical therapy, Lovenox 40mg daily Pain management with morphine 1mg q6 Hematology: Assessment/Plan: Mild leukocytosis, likely secondary to surgery, monitor TMAX 101.2 this a.m., monitor fever curve, on Ancef 1gm q8 Blood cultures ngtd Cardiology: Cardiac catherization 2011 Assessment/Plan:On ASA 81mg daily EKG on 08/17/2016 shows NSR with t wave abnormality, and compared to EKG of [address]&T wave abnormality is seen with a t wave inversion on inferior leads, prolonged QT not evident of EKG of 08/17/2016 Troponin negative x 1 F.E.N. Fluids: LR @75cc/hr Electrolytes: within normal limits Nutrition: regular diet Prophylaxis: DVT: Lovenox 40mg daily GI: colace, miralax Disposition: Discharge once cleared by surgery. DNR Visit type - Emergency Visit Emergency Visit: Yes ED Registration Date: 08/17/16 Care time: The patient presented to the Emergency Department on the above date and was hospitalized for further evaluation of their emergent condition. - New Patient This patient is new to me today: No - Critical Care Critical Care patient: No - Discharge Referral Referred to [facility] Med P.C.: No
[2016-08-20] MEDS ORDERED: PT OWN MED DRAWER 7, Y5N ONE (21:00)
[2016-08-20] MEDS: ATORVASTATIN CA 10 MG TABLET (FP) PO SCH (21:24)
[2016-08-20] MEDS: DONEPEZIL HCL 10 MG TABLET (FP) PO SCH (21:24)
[2016-08-21] MEDS: DEXTROSE 5%-0.45% SALINE 1,000 ML IV SCH ×3 (02:51→23:55)
[2016-08-21] MEDS: LEVOTHYROXINE NA 25 MCG TABLET (FP) PO SCH (06:10)
[2016-08-21] MEDS: risperiDONE 0.5 MG TABLET (FP) PO SCH ×3 (06:11→21:33)
[2016-08-21] MEDS: DOCUSATE SODIUM 100 MG CAPSULE (FP) PO SCH ×3 (06:17→21:32)
[2016-08-21] MEDS: LACTATED RINGERS SOLUTION 1,000 ML IV SCH ×2 (07:43→17:12)
[2016-08-21] MEDS: FERROUS SO4 325 MG TABLET (FP) PO SCH ×2 (07:43→17:26)
[2016-08-21 08:06] LABS: BASOPHIL 0.4 % (0-2.0); EOSINOPHIL 1.9 % (0-4.5); MCH 31.7 pg (25.7-33.7); MCHC 34.7 g/dl (32.0-36.0); MEAN CELL VOLUME 91.2 fl (80-96); MEAN PLT VOLUME 8.9 fl (7.5-11.1); NEUTROPHILS 70.9 % (42.8-82.8); PLATELET COUNT 175 K/MM3 (134-434); RDW 13.9 % (11.6-15.6); WHITE BLOOD COUNT 10.9 K/mm3 (4.0-10.0)
[2016-08-21 08:23] LABS: ALBUMIN 2.1 g/dl (3.4-5.0); ANION GAP 6 (8-16); BILIRUBIN,TOTAL 0.6 mg/dL (0.2-1.0); CO2 28 mmol/L (21-32); CREATININE 0.4 mg/dL (0.55-1.02); GLUCOSE,RANDOM 121 mg/dL (74-106); SGOT/AST 41 U/L (15-37); SGPT/ALT 44 U/L (12-78); TOT PROT 4.6 g/dl (6.4-8.2)
[2016-08-21 08:24] LABS: ALK PHOS 99 U/L (45-117)
[2016-08-21] MEDS ORDERED: PT OWN MED DRAWER 7, Y5N ONE ×3 (10:23→21:29)
[2016-08-21] MEDS: ENOXAPARIN NA (PORCINE) 40 MG/0.4 ML DISP.SYRIN SQ SCH (10:25)
[2016-08-21] MEDS: MEMANTINE HCL 10 MG TABLET (FP) PO SCH ×2 (10:25→21:32)
[2016-08-21] MEDS: POLYETHYLENE GLYCOL 3350 119 GM BTL PO SCH (10:25)
[2016-08-21] MEDS: CALCIUM 500MG/VIT-D 200 UNITS COMBO TABLET (FP) PO SCH ×2 (10:25→21:33)
--- NOTE | 2016-08-21 11:33 | PN ---
Progress Note, Physician History of Present Illness: Resting in bed. POD #2 s/p right gamma nail - Current Medication List Current Medications: Active Medications Acetaminophen (Tylenol -) 650 mg PO Q6H PRN PRN Reason: FEVER OR PAIN Last Admin: 08/20/16 02:00 Dose: 650 mg Atorvastatin Calcium (Lipitor -) 10 mg PO HS [facility] Last Admin: 08/20/16 21:24 Dose: 10 mg Calcium Carbonate/Cholecalciferol (Os-Constantino 500+D -) 1 tab PO BID [facility] Last Admin: 08/21/16 10:25 Dose: 1 tab Docusate Sodium (Colace -) 100 mg PO TID [facility] Last Admin: 08/21/16 06:17 Dose: Not Given Donepezil HCl (Aricept -) 10 mg PO [facility] Last Admin: 08/20/16 21:24 Dose: 10 mg Enoxaparin Sodium (Lovenox -) 40 mg SQ DAILY [facility] Last Admin: 08/21/16 10:25 Dose: 40 mg Fentanyl (Sublimaze Injection -) 25 mcg IVPUSH [id number] PRN PRN Reason: PAIN Stop: 08/22/16 17:00 Last Admin: 08/19/16 17:40 Dose: 25 mcg Ferrous Sulfate (Feosol -) 325 mg PO BIDWM [facility] Last Admin: 08/21/16 07:43 Dose: 325 mg Lactated Ringer's (Lactated Ringers Solution) 1,000 mls @ 75 mls/hr IV ASDIR [facility] Last Admin: 08/21/16 07:43 Dose: Not Given Dextrose/Sodium Chloride (D5-1/2ns -) 1,000 mls @ 100 mls/hr IV ASDIR [facility] Last Admin: 08/21/16 02:51 Dose: 100 mls/hr Levothyroxine Sodium (Synthroid -) 12.5 mcg PO DAILY@0700 [facility] Last Admin: 08/21/16 06:10 Dose: 12.5 mcg Memantine (Namenda -) 10 mg PO BID [facility] Last Admin: 08/21/16 10:25 Dose: 10 mg Morphine Sulfate (Morphine Injection -) 1 mg IVPUSH Q6H PRN PRN Reason: PAIN LEVEL 6-10 Polyethylene Glycol (Miralax (For Daily Use) -) 17 gm PO DAILY [facility] Last Admin: 08/21/16 10:25 Dose: 17 mg Risperidone (Risperdal -) 0.5 mg PO TID KOKI Last Admin: 08/21/16 06:11 Dose: 0.5 mg - Objective Vital Signs: Vital Signs Temperature 98.8 F 08/21/16 07:53 Pulse Rate 88 08/21/16 07:53 Respiratory Rate 18 08/21/16 07:53 Blood Pressure 99/55 08/21/16 07:53 O2 Sat by Pulse Oximetry (%) 95 08/20/16 20:46 Constitutional: Yes: No Distress, Calm HENT: Yes: Atraumatic, Normocephalic Musculoskeletal: Yes: Other (LLE: Dressing CDI, No sign of infection. Smooth motion of the hip. No calf tenderness. Compartments soft. NVID.) Labs: CBC, BMP 08/21/16 06:00 08/21/16 06:00 INR, PTT INR 1.20 (0.82-1.09) H 08/17/16 20:35 Assessment/Plan #1 s/p right hip gamma nail -Pain control -PT WBAT -DVT Prophylaxis -Monitor H&H, consider PRBC, recheck tomorrow am -May be discharged from orthopedic standpoint tomorrow.
--- NOTE | 2016-08-21 15:53 | PN ---
Physical Exam: SUBJECTIVE: Patient seen and examined at the bedside. In no acute distress. OBJECTIVE: POD #2 No overnight events Slight facial pallor, h/h 8.1/, trend and if lower: 1 unit of prbc in a.m. Vital Signs Period Temp Pulse Resp BP Sys/Christie Pulse Ox Last 24 Hr 98.4 F-99.5 F 72-110 18-20 98-128/55-72 95-95 ENERAL: Asleep, easily arousable HEAD: Normal with no signs of trauma. EYES: PERRL, extraocular movements intact, sclera anicteric, conjunctiva clear. No ptosis. ENT: Ears normal, nares patent, oropharynx clear without exudates, moist mucous membranes. NECK: Trachea midline, full range of motion, supple. LUNGS: Anterior lung sounds clear to auscultation HEART: regular rate and rhythm ABDOMEN: Soft, nontender, nondistended, normoactive bowel sounds, no guarding, no rebound, no hepatosplenomegaly, no masses. EXTREMITIES: POD#2 right hip IM nail surgical repair NEUROLOGICAL: Normal speech, gait not observed. PSYCH: Normal mood, normal affect. SKIN: Warm, dry, normal turgor, no rashes or lesions noted Laboratory Results - last 24 hr 08/21/16 08/21/16 06:00 06:00 WBC 10.9 H RBC 2.57 L Hgb 8.1 L Hct 23.4 L MCV 91.2 MCH 31.7 MCHC 34.7 RDW 13.9 Plt Count 175 MPV 8.9 Neutrophils % 70.9 Lymphocytes % 13.9 Monocytes % 12.9 H Eosinophils % 1.9 Basophils % 0.4 Sodium 140 Potassium 3.7 Chloride 106 Carbon Dioxide 28 Anion Gap 6 L BUN 9 Creatinine 0.4 L Creat Clearance w eGFR > 60 Random Glucose 121 H Calcium 8.0 L Total Bilirubin 0.6 AST 41 H D ALT 44 D Alkaline Phosphatase 99 D Total Protein 4.6 L Albumin 2.1 L Active Medications Generic Name Dose Route Start Last Admin Trade Name Freq PRN Reason Stop Dose Admin Acetaminophen 650 mg 08/19/16 17:10 08/20/16 02:00 Tylenol - PO 650 mg Q6H PRN Administration FEVER OR PAIN Atorvastatin Calcium 10 mg 08/19/16 22:00 08/20/16 21:24 Lipitor - PO 10 mg HS KOKI Administration Calcium Carbonate/Cholecalciferol 1 tab 08/19/16 22:00 08/21/16 10:25 Os-Constantino 500+D - PO 1 tab BID KOKI Administration Docusate Sodium 100 mg 08/19/16 22:00 08/21/16 13:27 Colace - PO Not Given TID KOKI Donepezil HCl 10 mg 08/19/16 22:00 08/20/16 21:24 Aricept - PO 10 mg HS KOKI Administration Enoxaparin Sodium 40 mg 08/20/16 10:00 08/21/16 10:25 Lovenox - SQ 40 mg DAILY KOKI Administration Fentanyl 25 mcg 08/19/16 16:59 08/19/16 17:40 Sublimaze Injection - IVPUSH 08/22/16 17:00 25 mcg [id number] PRN Administration PAIN Ferrous Sulfate 325 mg 08/20/16 08:00 08/21/16 07:43 Feosol - PO 325 mg BIDWM KOKI Administration Lactated Ringer's 1,000 mls @ 75 mls/hr 08/19/16 17:00 08/21/16 07:43 Lactated Ringers Solution IV Not Given ASDIR KOKI Dextrose/Sodium Chloride 1,000 mls @ 100 mls/hr 08/19/16 17:10 08/21/16 13:30 D5-1/2ns - IV 100 mls/hr ASDIR KOKI Administration Levothyroxine Sodium 12.5 mcg 08/20/16 07:00 08/21/16 06:10 Synthroid - PO 12.5 mcg DAILY@0700 KOKI Administration Memantine 10 mg 08/19/16 22:00 08/21/16 10:25 Namenda - PO 10 mg BID KOKI Administration Morphine Sulfate 1 mg 08/19/16 17:10 08/21/16 12:02 Morphine Injection - IVPUSH 1 mg Q6H PRN Administration PAIN LEVEL 6-10 Polyethylene Glycol 17 gm 08/21/16 10:00 08/21/16 10:25 Miralax (For Daily Use) - PO 17 mg DAILY KOKI Administration Risperidone 0.5 mg 08/19/16 22:00 08/21/16 13:30 Risperdal - PO 0.5 mg TID KOKI Administration ASSESSMENT/PLAN: Patient is a 76 year old female from [facility] with a significant past medical history of advanced dementia, cardiac catherization 2011, bilateral knee replacement, tubal ligation, hypothyroidism, HLD, asthma and GERD. She was brought in by EMS after having been found on the floor for an unknown period of time. She was noted to be unable to stand due to right leg pain, weakness and deformity. A hip/pelvis CT was performed which shows an acute intertrochanteric fracture. Imagin08/17/[address]: No evidence of acute intracranial pathology 08/17/2016 Hip/P[address]vis CT 08/17/2016: acute right intertrochanteric fracture 08/17/2016 Chest Xray: no evidence of acute pulmonary disease Orthopedics: Acute intertrochanteric fracture s/p fall on 08/17/16 - POD#2 right hip IM nail surgical repair Assessment/Plan: Physical therapy, Lovenox 40mg daily Pain management with morphine 1mg q6 Hematology: Assessment/Plan: Mild leukocytosis, likely secondary to surgery, monitor No fevers overnight, monitor fever curve, s/p Ancef 1gm Blood cultures ngtd Anemia - acute Assessment/Plan: Likely secondary to surgical repair Trend cbc, if <7, consider 1 unit of prbc Cardiology: Cardiac catherization 2011 Assessment/Plan:On ASA 81mg daily EKG on 08/17/2016 shows NSR with t wave abnormality, and compared to EKG of [address]&T wave abnormality is seen with a t wave inversion on inferior leads, prolonged QT not evident of EKG of 08/17/2016 Troponin negative x 1 F.E.N. Fluids: LR @75cc/hr Electrolytes: within normal limits Nutrition: regular diet Prophylaxis: DVT: Lovenox 40mg daily GI: colace, miralax Disposition: Discharge planning to rehab ongoing by MIKEY. DNR Visit type - Emergency Visit Emergency Visit: Yes ED Registration Date: 08/17/16 Care time: The patient presented to the Emergency Department on the above date and was hospitalized for further evaluation of their emergent condition. - New Patient This patient is new to me today: No - Critical Care Critical Care patient: No - Discharge Referral Referred to [facility] Med P.C.: No
--- NOTE | 2016-08-21 20:52 | OP ---
DATE OF OPERATION: 08/19/2016 PREOPERATIVE DIAGNOSIS: Right intertrochanteric hip fracture. POSTOPERATIVE DIAGNOSIS: Right intertrochanteric hip fracture. PROCEDURE: Right intramedullary nail. SURGEON: Luciano Guillermo MD MALT LOADER: TEJA Coleman, whose skillful assistance was necessary for the safe and timely performance of this procedure. Mr. Garcia was able to provide assistance in positioning the patient, assistance in fracture reduction, as well as the insertion of orthopedic hardware while the assembler surgical garment was working with complex instrumentation at the back table. IMPLANTS: Fermin gamma nail 125 degree x 130 mm, with 100 mm x 10-mm proximal lag screw and 5 mm x 35-mm distal locking bolt. POSTOPERATIVE CONDITION: Stable. COMPLICATIONS: None. BLOOD LOSS: 150 mL. INDICATIONS: This is a pleasantly demented lady woman who had suffered a fall. She had fallen last year and fractured the left hip, and this year fell and fractured the right hip. It was recommended to perform surgery. The option of nonoperative care with multiple medical complications was discussed. We discussed that operative care was recommended and would consist of an intramedullary nail, just like was done on the other side. Operative risks were reviewed in detail including bleeding, infection, neurovascular injury, need for further surgery, postoperative pain and stiffness, nonunion, malunion, hardware cutout or failure. We discussed that there was significant osteoarthritis presently in the hip prior to surgery. This will be present after the surgery. It may lead to some long-term discomfort. We discussed medical risks such as heart attack, stroke, DVT, PE, and . I addressed the patient 's daughter's questions. She voiced understanding and elected to proceed. PROCEDURE: The patient was brought to the operating room, where spinal anesthesia was administered. The right lower extremity was then prepped and draped in the usual sterile fashion. Preoperative intravenous antibiotics given and the usual timeout procedure was performed. At this point, incision was planned out just proximal to the greater trochanter. This carried down through skin and subcutaneous tissue. A guidewire was now placed onto the tip of the greater trochanter and advanced through the fracture site down into the femoral canal. Guidewire placement was confirmed fluoroscopically in 2 planes. The opening reamer was now passed over the guidewire down to the level of the lesser trochanter. The guidewire was now removed along the reamer. The nail was now inserted into the femoral canal. Nail placement was confirmed fluoroscopically. Guidewire was now inserted through the small incision laterally and through the trocar into the center of the femoral head. Guidewire placement was confirmed fluoroscopically in 2 planes. The guidewire was now measured and 100-mm proximal lag screws chosen. The reamer was now passed down to a depth of 95 mm. The screw was now inserted under fluoroscopic guidance. The screw placement was confirmed in 2 planes fluoroscopically. The lag screw was now compressed. The set screw was inserted and tightened down all the way and then backed off a quarter turn to allow for further compression. The proximal trocar was now removed. A distal trocar was again inserted through a small incision down to the level of lateral femoral cortex. The near and far cortices were drilled and then measured and a 35-mm screw was chosen. This was then inserted. Screw placement was again confirmed fluoroscopically. At this point, the entire construct was examined both fluoroscopically. The fracture reduction and hardware placement were satisfactory. The wound was irrigated. The deep tissues were approximated using 0 Vicryl. Subcutaneous tissue was approximated using 2-0 Vicryl. The skin was closed using running 3-0 nylon. Sterile dressings were placed. The patient was transferred to recovery room in stable condition. Constantine CRUZ/[id number] MTDD
[2016-08-21] MEDS: DONEPEZIL HCL 10 MG TABLET (FP) PO SCH (21:33)
[2016-08-21] MEDS: ATORVASTATIN CA 10 MG TABLET (FP) PO SCH (21:33)
[2016-08-21] MEDS: ACETAMINOPHEN 325 MG TABLET (FP) PO PRN (21:33)
[2016-08-22] MEDS: LEVOTHYROXINE NA 25 MCG TABLET (FP) PO SCH (06:00)
[2016-08-22] MEDS: risperiDONE 0.5 MG TABLET (FP) PO SCH ×3 (06:00→22:39)
[2016-08-22] MEDS: DOCUSATE SODIUM 100 MG CAPSULE (FP) PO SCH ×3 (06:05→22:38)
[2016-08-22 07:17] LABS: BASOPHIL 0.5 % (0-2.0); EOSINOPHIL 4.6 % (0-4.5); MCH 31.8 pg (25.7-33.7); MEAN CELL VOLUME 90.7 fl (80-96); MEAN PLT VOLUME 8.3 fl (7.5-11.1); NEUTROPHILS 69.7 % (42.8-82.8); PLATELET COUNT 193 K/MM3 (134-434); WHITE BLOOD COUNT 7.7 K/mm3 (4.0-10.0)
[2016-08-22 07:38] LABS: CALCIUM 7.9 mg/dL (8.5-10.1)
[2016-08-22 07:43] LABS: ALBUMIN 1.8 g/dl (3.4-5.0); ALK PHOS 104 U/L (45-117); ANION GAP 7 (8-16); BILIRUBIN,TOTAL 0.6 mg/dL (0.2-1.0); CO2 28 mmol/L (21-32); CREATININE 0.4 mg/dL (0.55-1.02); GLUCOSE,RANDOM 111 mg/dL (74-106); SGOT/AST 85 U/L (15-37); SGPT/ALT 95 U/L (12-78); TOT PROT 4.2 g/dl (6.4-8.2)
[2016-08-22] MEDS: FERROUS SO4 325 MG TABLET (FP) PO SCH ×2 (08:04→18:04)
[2016-08-22] MEDS ORDERED: PT OWN MED DRAWER 7, Y5N ONE ×3 (10:09→21:28)
[2016-08-22] MEDS: CALCIUM 500MG/VIT-D 200 UNITS COMBO TABLET (FP) PO SCH ×2 (10:14→22:38)
[2016-08-22] MEDS: MEMANTINE HCL 10 MG TABLET (FP) PO SCH ×2 (10:14→22:39)
[2016-08-22] MEDS: POLYETHYLENE GLYCOL 3350 119 GM BTL PO SCH (10:14)
[2016-08-22] MEDS: ENOXAPARIN NA (PORCINE) 40 MG/0.4 ML DISP.SYRIN SQ SCH (10:14)
[2016-08-22 10:16] LABS: MCH 31.6 pg (25.7-33.7); MCHC 34.8 g/dl (32.0-36.0); MEAN CELL VOLUME 90.8 fl (80-96); MEAN PLT VOLUME 8.2 fl (7.5-11.1); PLATELET COUNT 183 K/MM3 (134-434); RDW 13.9 % (11.6-15.6); WHITE BLOOD COUNT 8.5 K/mm3 (4.0-10.0)
--- NOTE | 2016-08-22 10:34 | PN ---
Progress Note (short form) - Note Progress Note: Subjective: The patient was seen and examined at the bedside, the daughter is present. A&Ox1 (person only). Hgb 6.9, repeat 7. Will order 1 u PRBC Current Medications Generic Name Dose Route Start Last Admin Trade Name Freq PRN Reason Stop Dose Admin Acetaminophen 650 mg 08/19/16 17:10 08/21/16 21:33 Tylenol - PO 650 mg Q6H PRN Administration FEVER OR PAIN Atorvastatin Calcium 10 mg 08/19/16 22:00 08/21/16 21:33 Lipitor - PO 10 mg HS KOKI Administration Calcium Carbonate/Cholecalciferol 1 tab 08/19/16 22:00 08/22/16 10:14 Os-Constantino 500+D - PO 1 tab BID KOKI Administration Docusate Sodium 100 mg 08/19/16 22:00 08/22/16 06:05 Colace - PO Not Given TID KOKI Donepezil HCl 10 mg 08/19/16 22:00 08/21/16 21:33 Aricept - PO 10 mg HS KOKI Administration Enoxaparin Sodium 40 mg 08/20/16 10:00 08/22/16 10:14 Lovenox - SQ 40 mg DAILY KOKI Administration Fentanyl 25 mcg 08/19/16 16:59 08/19/16 17:40 Sublimaze Injection - IVPUSH 08/22/16 17:00 25 mcg [id number] PRN Administration PAIN Ferrous Sulfate 325 mg 08/20/16 08:00 08/22/16 08:04 Feosol - PO 325 mg BIDWM KOKI Administration Lactated Ringer's 1,000 mls @ 75 mls/hr 08/19/16 17:00 08/21/16 17:12 Lactated Ringers Solution IV Not Given ASDIR KOKI Dextrose/Sodium Chloride 1,000 mls @ 100 mls/hr 08/19/16 17:10 08/21/16 23:55 D5-1/2ns - IV 100 mls/hr ASDIR KOKI Administration Levothyroxine Sodium 12.5 mcg 08/20/16 07:00 08/22/16 06:00 Synthroid - PO 12.5 mcg DAILY@0700 KOKI Administration Memantine 10 mg 08/19/16 22:00 08/22/16 10:14 Namenda - PO 10 mg BID KOKI Administration Morphine Sulfate 1 mg 08/19/16 17:10 08/21/16 12:02 Morphine Injection - IVPUSH 1 mg Q6H PRN Administration PAIN LEVEL 6-10 Polyethylene Glycol 17 gm 08/21/16 10:00 08/22/16 10:14 Miralax (For Daily Use) - PO 17 mg DAILY KOKI Administration Risperidone 0.5 mg 08/19/16 22:00 08/22/16 06:00 Risperdal - PO 0.5 mg TID KOKI Administration Objective: Vital Signs Period Temp Pulse Resp BP Sys/Christie Pulse Ox Last 24 Hr 98.4 F-101.4 F 72-90 18-101 96-108/53-60 95 Physical Exam: General: NAD Lungs: CTA bilaterally Heart: RRR, S1S2 Abd: Soft, non-tender, non-distended. Normoactive bowel sounds Ext: RLE with dressing, dried blood present on dressing. 2+ DP/PT bilaterally Neuro: CN 2-12 intact CBCD WBC 8.5 K/mm3 (4.0-10.0) 08/22/16 09:42 RBC 2.23 M/mm3 (3.60-5.2) L 08/22/16 09:42 Hgb 7.0 GM/dL (10.7-15.3) L 08/22/16 09:42 Hct 20.2 % (32.4-45.2) L 08/22/16 09:42 MCV 90.8 fl (80-96) 08/22/16 09:42 MCHC 34.8 g/dl (32.0-36.0) 08/22/16 09:42 RDW 13.9 % (11.6-15.6) 08/22/16 09:42 Plt Count 183 K/MM3 (134-434) 08/22/16 09:42 MPV 8.2 fl (7.5-11.1) 08/22/16 09:42 CMP Sodium 143 mmol/L (136-145) 08/22/16 06:45 Potassium 3.8 mmol/L (3.5-5.1) 08/22/16 06:45 Chloride 108 mmol/L (98-107) H 08/22/16 06:45 Carbon Dioxide 28 mmol/L (21-32) 08/22/16 06:45 Anion Gap 7 (8-16) L 08/22/16 06:45 BUN 10 mg/dL (7-18) 08/22/16 06:45 Creatinine 0.4 mg/dL (0.55-1.02) L 08/22/16 06:45 Creat Clearance w eGFR > 60 (>60) 08/22/16 06:45 Random Glucose 111 mg/dL (74-106) H 08/22/16 06:45 Calcium 7.9 mg/dL (8.5-10.1) L 08/22/16 06:45 Total Bilirubin 0.6 mg/dL (0.2-1.0) 08/22/16 06:45 AST 85 U/L (15-37) H D 08/22/16 06:45 ALT 95 U/L (12-78) H D 08/22/16 06:45 Alkaline Phosphatase 104 U/L (45-117) 08/22/16 06:45 Total Protein 4.2 g/dl (6.4-8.2) L 08/22/16 06:45 Albumin 1.8 g/dl (3.4-5.0) L 08/22/16 06:45 CARDIAC ENZYMES Troponin I < 0.02 ng/ml (0.00-0.05) 08/18/16 12:00 Microbiology 08/18/16 12:00 Blood - Peripheral Venous Blood Culture - Preliminary NO GROWTH OBTAINED AFTER 72 HOURS, INCUBATION TO CONTINUE FOR 2 DAYS. 08/18/16 12:15 Blood - Peripheral Venous Blood Culture - Preliminary NO GROWTH OBTAINED AFTER 72 HOURS, INCUBATION TO CONTINUE FOR 2 DAYS. 08/17/16 20:14 Urine - Urine - Catheterized Urine Culture - Final NO GROWTH OBTAINED Imagin08/17/[address]: No evidence of acute intracranial pathology 08/17/2016 Hip/Pelvis CT 08/17/2016: acute right intertrochanteric fracture 08/17/2016 Chest Xray: no evidence of acute pulmonary disease Assessment: This is a 76 female with PMHx of advanced dementia, cardiac catherization 2011, bilateral knee replacement, tubal ligation, hypothyroidism, HLD, asthma and GERD who presented to the ED s/p fall and was found to have a right intertrochanteric fracture. Plan: 1) Ortho: POD 3, right hip IM nail - Drop in Hgb today, 6.9 (repeat 7). Will order 1u PRBC and recheck. No evidence of increase in bleeding around surgical site - Pain management - Lovenox - Physical therapy - Will need SNF - Appreciate ortho consult 2) ID: Tmax 101.4 overnight - F/u repeat cultures - Incentive spirometer - Chest X-ray with no evidence of acute pulmonary disease - Continue to monitor off abx 3) Cardiology: S/p cardiac cath 2011 - Hold ASA until cleared by surgery - Continue Lipitor 4) F/E/N: - Regular diet - Monitor electrolytes 5) Prophylaxis: - On Lovenox 6) Dispo: - Requires continued inpatient care CODE STATUS: FULL CODE Visit type - Emergency Visit Emergency Visit: Yes ED Registration Date: 08/17/16 Care time: The patient presented to the Emergency Department on the above date and was hospitalized for further evaluation of their emergent condition. - New Patient This patient is new to me today: Yes Date on this admission: 08/22/16 - Critical Care Critical Care patient: No
[2016-08-22] MEDS: ACETAMINOPHEN 325 MG TABLET (FP) PO PRN (12:05)
--- NOTE | 2016-08-22 17:44 | PN ---
Progress Note (short form) - Note Progress Note: S: Patient feeling well. History limited. Denies pain. O: Vital Signs Temperature 99 F 08/22/16 14:29 Pulse Rate 90 08/22/16 14:29 Respiratory Rate 20 08/22/16 14:29 Blood Pressure 127/70 08/22/16 14:29 O2 Sat by Pulse Oximetry (%) 95 08/21/16 21:00 VSS. Afebrile. NAD. R hip: Dressings C/D/I. Scant drainage centrally noted to proximal dressing. Limited ROM secondary to pain. EHL/FHL unable to be tested. NVID. CBC, BMP 08/22/16 09:42 08/22/16 06:45 A/P: 76 y/o female POD #3 s/p R hip IM nail placement -Continue pain control -Continue DVT prophylaxis -OOB/PT -H/H decreased today; patient received transfusion; continue tx as per medical team -dispo to short term rehab once medically cleared
[2016-08-22] MEDS: ATORVASTATIN CA 10 MG TABLET (FP) PO SCH (22:38)
[2016-08-22] MEDS: DONEPEZIL HCL 10 MG TABLET (FP) PO SCH (22:38)
[2016-08-22] MEDS: DEXTROSE 5%-0.45% SALINE 1,000 ML IV SCH (22:40)
[2016-08-23] MEDS: DOCUSATE SODIUM 100 MG CAPSULE (FP) PO SCH ×3 (06:15→21:40)
[2016-08-23] MEDS: LEVOTHYROXINE NA 25 MCG TABLET (FP) PO SCH (06:15)
[2016-08-23] MEDS: risperiDONE 0.5 MG TABLET (FP) PO SCH ×3 (06:15→21:41)
[2016-08-23 07:18] LABS: MCH 31.3 pg (25.7-33.7); MCHC 34.9 g/dl (32.0-36.0); MEAN CELL VOLUME 89.5 fl (80-96); MEAN PLT VOLUME 8.4 fl (7.5-11.1); PLATELET COUNT 224 K/MM3 (134-434); RDW 14.3 % (11.6-15.6); WHITE BLOOD COUNT 7.2 K/mm3 (4.0-10.0)
[2016-08-23 07:51] LABS: ALBUMIN 1.8 g/dl (3.4-5.0); ANION GAP 7 (8-16); BILIRUBIN,TOTAL 1.2 mg/dL (0.2-1.0); CALCIUM 7.7 mg/dL (8.5-10.1); CO2 28 mmol/L (21-32); CREATININE 0.3 mg/dL (0.55-1.02); GLUCOSE,RANDOM 99 mg/dL (74-106); SGOT/AST 116 U/L (15-37); TOT PROT 4.3 g/dl (6.4-8.2)
[2016-08-23 07:52] LABS: ALK PHOS 122 U/L (45-117); SGPT/ALT 156 U/L (12-78)
[2016-08-23] MEDS: ENOXAPARIN NA (PORCINE) 40 MG/0.4 ML DISP.SYRIN SQ SCH (09:01)
[2016-08-23] MEDS: FERROUS SO4 325 MG TABLET (FP) PO SCH ×2 (09:04→17:28)
[2016-08-23] MEDS: MEMANTINE HCL 10 MG TABLET (FP) PO SCH ×2 (09:04→21:40)
[2016-08-23] MEDS: POLYETHYLENE GLYCOL 3350 119 GM BTL PO SCH (09:04)
[2016-08-23] MEDS: CALCIUM 500MG/VIT-D 200 UNITS COMBO TABLET (FP) PO SCH ×2 (09:04→21:40)
--- NOTE | 2016-08-23 10:35 | PN ---
Progress Note (short form) - Note Progress Note: Subjective: The patient was seen and examined at the bedside, the daughter is present. A&Ox1 (person only). S/p 1u PRBC on 08/22. Hgb today 7.9 Current Medications Generic Name Dose Route Start Last Admin Trade Name Lacie PRN Reason Stop Dose Admin Calcium Carbonate/Cholecalciferol 1 tab 08/19/16 22:00 08/23/16 09:04 Os-Constantino 500+D - PO 1 tab BID KOKI Administration Docusate Sodium 100 mg 08/19/16 22:00 08/23/16 06:15 Colace - PO 100 mg TID KOKI Administration Donepezil HCl 10 mg 08/19/16 22:00 08/22/16 22:38 Aricept - PO 10 mg HS KOKI Administration Enoxaparin Sodium 40 mg 08/20/16 10:00 08/23/16 09:01 Lovenox - SQ 40 mg DAILY KOKI Administration Ferrous Sulfate 325 mg 08/20/16 08:00 08/23/16 09:04 Feosol - PO 325 mg BIDWM KOKI Administration Lactated Ringer's 1,000 mls @ 75 mls/hr 08/19/16 17:00 08/21/16 17:12 Lactated Ringers Solution IV Not Given ASDIR KOKI Dextrose/Sodium Chloride 1,000 mls @ 100 mls/hr 08/19/16 17:10 08/22/16 22:40 D5-1/2ns - IV 100 mls/hr ASDIR KOKI Administration Levothyroxine Sodium 12.5 mcg 08/20/16 07:00 08/23/16 06:15 Synthroid - PO 12.5 mcg DAILY@0700 KOKI Administration Memantine 10 mg 08/19/16 22:00 08/23/16 09:04 Namenda - PO 10 mg BID KOKI Administration Polyethylene Glycol 17 gm 08/21/16 10:00 08/23/16 09:04 Miralax (For Daily Use) - PO 17 mg DAILY KOKI Administration Risperidone 0.5 mg 08/19/16 22:00 08/23/16 06:15 Risperdal - PO 0.5 mg TID KOKI Administration Objective: Vital Signs Period Temp Pulse Resp BP Sys/Christie Pulse Ox Last 24 Hr 97.8 F-99 F 86-91 18-21 102-127/54-70 95 Physical Exam: General: NAD Lungs: CTA bilaterally Heart: RRR, S1S2 Abd: Soft, non-tender, non-distended. Normoactive bowel sounds Ext: RLE with dressing, dried blood present on proximal dressing. 2+ DP/PT bilaterally Neuro: CN 2-12 intact CBCD WBC 7.2 K/mm3 (4.0-10.0) 08/23/16 05:35 RBC 2.52 M/mm3 (3.60-5.2) L 08/23/16 05:35 Hgb 7.9 GM/dL (10.7-15.3) L D 08/23/16 05:35 Hct 22.5 % (32.4-45.2) L 08/23/16 05:35 MCV 89.5 fl (80-96) 08/23/16 05:35 MCHC 34.9 g/dl (32.0-36.0) 08/23/16 05:35 RDW 14.3 % (11.6-15.6) 08/23/16 05:35 Plt Count 224 K/MM3 (134-434) D 08/23/16 05:35 MPV 8.4 fl (7.5-11.1) 08/23/16 05:35 CMP Sodium 141 mmol/L (136-145) 08/23/16 05:35 Potassium 3.7 mmol/L (3.5-5.1) 08/23/16 05:35 Chloride 106 mmol/L (98-107) 08/23/16 05:35 Carbon Dioxide 28 mmol/L (21-32) 08/23/16 05:35 Anion Gap 7 (8-16) L 08/23/16 05:35 BUN 12 mg/dL (7-18) 08/23/16 05:35 Creatinine 0.3 mg/dL (0.55-1.02) L D 08/23/16 05:35 Creat Clearance w eGFR > 60 (>60) 08/23/16 05:35 Random Glucose 99 mg/dL (74-106) 08/23/16 05:35 Calcium 7.7 mg/dL (8.5-10.1) L 08/23/16 05:35 Total Bilirubin 1.2 mg/dL (0.2-1.0) H D 08/23/16 05:35 AST 116 U/L (15-37) H D 08/23/16 05:35 ALT 156 U/L (12-78) H D 08/23/16 05:35 Alkaline Phosphatase 122 U/L (45-117) H 08/23/16 05:35 Total Protein 4.3 g/dl (6.4-8.2) L 08/23/16 05:35 Albumin 1.8 g/dl (3.4-5.0) L 08/23/16 05:35 CARDIAC ENZYMES Troponin I < 0.02 ng/ml (0.00-0.05) 08/18/16 12:00 Microbiology 08/21/16 23:15 Blood - Peripheral Venous Blood Culture - Preliminary NO GROWTH OBTAINED AFTER 24 HOURS, INCUBATION TO CONTINUE FOR 4 DAYS. 08/21/16 23:15 Blood - Peripheral Venous Blood Culture - Preliminary NO GROWTH OBTAINED AFTER 24 HOURS, INCUBATION TO CONTINUE FOR 4 DAYS. 08/18/16 12:00 Blood - Peripheral Venous Blood Culture - Preliminary NO GROWTH OBTAINED AFTER 96 HOURS, INCUBATION TO CONTINUE FOR 1 DAYS. 08/18/16 12:15 Blood - Peripheral Venous Blood Culture - Preliminary NO GROWTH OBTAINED AFTER 96 HOURS, INCUBATION TO CONTINUE FOR 1 DAYS. 08/17/16 20:14 Urine - Urine - Catheterized Urine Culture - Final NO GROWTH OBTAINED Imagin08/17/[address]: No evidence of acute intracranial pathology 08/17/2016 Hip/Pelvis CT 08/17/2016: acute right intertrochanteric fracture 08/17/2016 Chest Xray: no evidence of acute pulmonary disease Assessment: This is a 76 female with PMHx of advanced dementia, cardiac catherization 2011, bilateral knee replacement, tubal ligation, hypothyroidism, HLD, asthma and GERD who presented to the ED s/p fall and was found to have a right intertrochanteric fracture. Plan: 1) Ortho: POD 4, right hip IM nail - S/p 1u PRBC on 08/22 - Hgb today 7.9 - Pain management - Lovenox - Physical therapy - Will need SNF - Appreciate ortho consult 2) ID: Tmax 101.4 overnight - Repeat cultures with BGTD - Incentive spirometer - Chest X-ray with no evidence of acute pulmonary disease - Continue to monitor off abx 3) GI: Transaminitis - F/u liver ultrasound 4) Cardiology: S/p cardiac cath 2011 - Hold ASA until cleared by surgery - Continue Lipitor 5) F/E/N: - Regular diet - Monitor electrolytes 6) Prophylaxis: - On Lovenox 7) Dispo: - Requires continued inpatient care CODE STATUS: FULL CODE Visit type - Emergency Visit Emergency Visit: Yes ED Registration Date: 08/17/16 Care time: The patient presented to the Emergency Department on the above date and was hospitalized for further evaluation of their emergent condition. - New Patient This patient is new to me today: No - Critical Care Critical Care patient: No
[2016-08-23] MEDS: DEXTROSE 5%-0.45% SALINE 1,000 ML IV SCH (19:30)
[2016-08-23] MEDS: DONEPEZIL HCL 10 MG TABLET (FP) PO SCH (21:40)
[2016-08-24] MEDS: LEVOTHYROXINE NA 25 MCG TABLET (FP) PO SCH (06:06)
[2016-08-24] MEDS: risperiDONE 0.5 MG TABLET (FP) PO SCH ×3 (06:06→21:24)
[2016-08-24] MEDS: DOCUSATE SODIUM 100 MG CAPSULE (FP) PO SCH ×3 (06:06→21:24)
[2016-08-24] MEDS: DEXTROSE 5%-0.45% SALINE 1,000 ML IV SCH ×2 (06:07→10:19)
[2016-08-24 06:53] LABS: BASOPHIL 0.5 % (0-2.0); EOSINOPHIL 3.5 % (0-4.5); MCH 30.5 pg (25.7-33.7); MCHC 33.8 g/dl (32.0-36.0); MEAN CELL VOLUME 90.3 fl (80-96); MEAN PLT VOLUME 8.2 fl (7.5-11.1); NEUTROPHILS 72.2 % (42.8-82.8); PLATELET COUNT 314 K/MM3 (134-434); RDW 14.5 % (11.6-15.6); WHITE BLOOD COUNT 8.7 K/mm3 (4.0-10.0)
[2016-08-24 07:12] LABS: ALBUMIN 2.1 g/dl (3.4-5.0); ANION GAP 8 (8-16); CALCIUM 8.3 mg/dL (8.5-10.1); CO2 29 mmol/L (21-32); CREATININE 0.3 mg/dL (0.55-1.02); GLUCOSE,RANDOM 105 mg/dL (74-106); SGOT/AST 103 U/L (15-37); SGPT/ALT 169 U/L (12-78)
[2016-08-24 07:13] LABS: ALK PHOS 156 U/L (45-117); TOT PROT 4.9 g/dl (6.4-8.2)
[2016-08-24] MEDS: FERROUS SO4 325 MG TABLET (FP) PO SCH ×2 (08:53→18:01)
--- NOTE | 2016-08-24 09:40 | PN ---
Progress Note (short form) - Note Progress Note: Subjective: The patient was seen and examined at the bedside, she has no complaints today Liver enzymes continue to rise, liver ultrasound reviewed Current Medications Generic Name Dose Route Start Last Admin Trade Name Lacie PRN Reason Stop Dose Admin Calcium Carbonate/Cholecalciferol 1 tab 08/19/16 22:00 08/23/16 21:40 Os-Constantino 500+D - PO 1 tab BID KOKI Administration Docusate Sodium 100 mg 08/19/16 22:00 08/24/16 06:06 Colace - PO 100 mg TID KOKI Administration Donepezil HCl 10 mg 08/19/16 22:00 08/23/16 21:40 Aricept - PO 10 mg HS KOKI Administration Enoxaparin Sodium 40 mg 08/20/16 10:00 08/23/16 09:01 Lovenox - SQ 40 mg DAILY KOKI Administration Ferrous Sulfate 325 mg 08/20/16 08:00 08/24/16 08:53 Feosol - PO 325 mg BIDWM KOKI Administration Lactated Ringer's 1,000 mls @ 75 mls/hr 08/19/16 17:00 08/21/16 17:12 Lactated Ringers Solution IV Not Given ASDIR KOKI Dextrose/Sodium Chloride 1,000 mls @ 100 mls/hr 08/19/16 17:10 08/24/16 06:07 D5-1/2ns - IV 100 mls/hr ASDIR KOKI Administration Levothyroxine Sodium 12.5 mcg 08/20/16 07:00 08/24/16 06:06 Synthroid - PO 12.5 mcg DAILY@0700 KOKI Administration Memantine 10 mg 08/19/16 22:00 08/23/16 21:40 Namenda - PO 10 mg BID KOKI Administration Polyethylene Glycol 17 gm 08/21/16 10:00 08/23/16 09:04 Miralax (For Daily Use) - PO 17 mg DAILY KOKI Administration Risperidone 0.5 mg 08/19/16 22:00 08/24/16 06:06 Risperdal - PO 0.5 mg TID KOKI Administration Objective: Vital Signs Period Temp Pulse Resp BP Sys/Christie Pulse Ox Last 24 Hr 98.0 F-100.2 F 70-95 18-20 106-130/61-70 95 Physical Exam: General: NAD Lungs: CTA bilaterally Heart: RRR, S1S2 Abd: Soft, non-tender, non-distended. Normoactive bowel sounds Ext: RLE with dressing, dried blood present on proximal dressing. 2+ DP/PT bilaterally Neuro: CN 2-12 intact CBCD WBC 8.7 K/mm3 (4.0-10.0) 08/24/16 05:45 RBC 2.80 M/mm3 (3.60-5.2) L 08/24/16 05:45 Hgb 8.5 GM/dL (10.7-15.3) L 08/24/16 05:45 Hct 25.3 % (32.4-45.2) L 08/24/16 05:45 MCV 90.3 fl (80-96) 08/24/16 05:45 MCHC 33.8 g/dl (32.0-36.0) 08/24/16 05:45 RDW 14.5 % (11.6-15.6) 08/24/16 05:45 Plt Count 314 K/MM3 (134-434) D 08/24/16 05:45 MPV 8.2 fl (7.5-11.1) 08/24/16 05:45 CMP Sodium 142 mmol/L (136-145) 08/24/16 05:45 Potassium 4.3 mmol/L (3.5-5.1) 08/24/16 05:45 Chloride 105 mmol/L (98-107) 08/24/16 05:45 Carbon Dioxide 29 mmol/L (21-32) 08/24/16 05:45 Anion Gap 8 (8-16) 08/24/16 05:45 BUN 11 mg/dL (7-18) 08/24/16 05:45 Creatinine 0.3 mg/dL (0.55-1.02) L 08/24/16 05:45 Creat Clearance w eGFR > 60 (>60) 08/24/16 05:45 Random Glucose 105 mg/dL (74-106) 08/24/16 05:45 Calcium 8.3 mg/dL (8.5-10.1) L 08/24/16 05:45 Total Bilirubin 1.0 mg/dL (0.2-1.0) 08/24/16 05:45 AST 103 U/L (15-37) H 08/24/16 05:45 ALT 169 U/L (12-78) H 08/24/16 05:45 Alkaline Phosphatase 156 U/L (45-117) H D 08/24/16 05:45 Total Protein 4.9 g/dl (6.4-8.2) L 08/24/16 05:45 Albumin 2.1 g/dl (3.4-5.0) L 08/24/16 05:45 CARDIAC ENZYMES Troponin I < 0.02 ng/ml (0.00-0.05) 08/18/16 12:00 Microbiology 08/21/16 23:15 Blood - Peripheral Venous Blood Culture - Preliminary NO GROWTH OBTAINED AFTER 48 HOURS, INCUBATION TO CONTINUE FOR 3 DAYS. 08/21/16 23:15 Blood - Peripheral Venous Blood Culture - Preliminary NO GROWTH OBTAINED AFTER 48 HOURS, INCUBATION TO CONTINUE FOR 3 DAYS. 08/18/16 12:00 Blood - Peripheral Venous Blood Culture - Final NO GROWTH AFTER 5 DAYS INCUBATION 08/18/16 12:15 Blood - Peripheral Venous Blood Culture - Final NO GROWTH AFTER 5 DAYS INCUBATION 08/17/16 20:14 Urine - Urine - Catheterized Urine Culture - Final NO GROWTH OBTAINED Imagin08/17/[address]: No evidence of acute intracranial pathology 08/17/2016 Hip/Pelvis CT 08/17/2016: acute right intertrochanteric fracture 08/17/2016 Chest Xray: no evidence of acute pulmonary disease Assessment: This is a 76 female with PMHx of advanced dementia, cardiac catherization 2011, bilateral knee replacement, tubal ligation, hypothyroidism, HLD, asthma and GERD who presented to the ED s/p fall and was found to have a right intertrochanteric fracture. Plan: 1) Ortho: POD 5, right hip IM nail - S/p 1u PRBC on 08/22 - Hgb stable - Pain management - Lovenox - Physical therapy - Will need SNF - Appreciate ortho consult 2) ID: Afebrile - Repeat cultures with NGTD - Incentive spirometer - Chest X-ray with no evidence of acute pulmonary disease - Continue to monitor off abx 3) GI: Transaminitis - Possibly 2/2 Ancef? - Liver ultrasound reviewed - If liver enzymes continue to rise, will order MRCP - Appreciate GI consult 4) Cardiology: S/p cardiac cath 2011 - Hold ASA until cleared by surgery - Continue Lipitor 5) F/E/N: - Regular diet - Monitor electrolytes 6) Prophylaxis: - On Lovenox 7) Dispo: - Requires continued inpatient care CODE STATUS: FULL CODE Visit type - Emergency Visit Emergency Visit: Yes ED Registration Date: 08/17/16 Care time: The patient presented to the Emergency Department on the above date and was hospitalized for further evaluation of their emergent condition. - New Patient This patient is new to me today: No - Critical Care Critical Care patient: No
[2016-08-24] MEDS: CALCIUM 500MG/VIT-D 200 UNITS COMBO TABLET (FP) PO SCH ×2 (10:19→21:24)
[2016-08-24] MEDS: ENOXAPARIN NA (PORCINE) 40 MG/0.4 ML DISP.SYRIN SQ SCH (10:19)
[2016-08-24] MEDS: MEMANTINE HCL 10 MG TABLET (FP) PO SCH ×2 (10:19→21:24)
--- NOTE | 2016-08-24 11:21 | CON.GI ---
Consult Consult Specialty:: GI Referred by:: Hospitalist Reason for Consultation:: Abnormal LFTs - History of Present Illness Chief Complaint: Abnormal LFTs History of Present Illness: 76F admitted s/p fall at [place] s/p repair of right intertrochanteric fracture . LFT's noted to rise 08/21. She had received tylenol as well as cefazolin during her hospitalization. She was also previously on a statin that was discontinued. She had an abdominal US revealing liver cysts and a 7mm CBD. While somewhat prominent, this did not appear changed from a CT scan study from 2011. Her gallbladder was not visualized on this recent US study, there is no history of cholecystectomy, no scars on her abdomen and upon review of the CT scan from [address] Wlaler, there was a present gallbladder seen at that time without evidence of gallstones. The patient is demented, without meaningful verbalization. It appears as though she has followed with Dr. Mike Pop who performed a colonoscopy on Ms. Joseph in 2011. This led to the removal of a tubular adenoma. Per the chart there is also a family history of colon cancer. - History Source History Provided By: Medical Record - Past Medical History LEAVE MANAGER: Yes: Dementia Cardio/Vascular: Yes: AFIB, HTN, Hyperlipdemia Pulmonary: Yes: Asthma - Alcohol/Substance Use Hx Alcohol Use: No - Smoking History Smoking history: Never smoked Have you smoked in the past 12 months: No Aproximately how many cigarettes per day: 0 - Social History Usual Living Arrangement: Intermediate ADL: Support Services Place of : [facility] History of Recent Travel: No Home Medications - Allergies Allergies/Adverse Reactions: Allergies Allergy/AdvReac Type Severity Reaction Status Date / Time No Known Allergies Allergy Verified 08/17/16 18:53 - Home Medications Home Medications: Ambulatory Orders Acetaminophen [Tylenol .Extra-Strength -] 500 mg PO BID PRN 08/17/16 Aspirin [ASA -] 81 mg PO DAILY 08/17/16 Atorvastatin Ca [Lipitor] 10 mg PO HS 08/17/16 Donepezil HCl [Aricept -] 10 mg PO HS 08/17/16 Ergocalciferol (Vitamin D2) [Vitamin D2] 2,000 unit PO DAILY 08/17/16 Fluticasone Propionate [Flovent Diskus] 100 mcg IH DAILY 08/17/16 Levothyroxine [Synthroid -] 12.5 mcg PO DAILY 08/17/16 Memantine HCl [Namenda -] 10 mg PO BID 08/17/16 Multivitamin [Poly-Vitamin] 1 each PO DAILY 08/17/16 Risperidone [Risperdal -] 0.5 mg PO TID 08/17/16 Calcium 500Mg/Vit-D 200 Units [Os-Constantino 500+D -] 1 tab PO BID tab 08/21/16 Docusate Sodium [Colace -] 100 mg PO TID #120 tab 08/21/16 Enoxaparin [Lovenox -] 40 mg SQ DAILY #30 syringe 08/21/16 Ferrous Sulfate [Feosol] 325 mg PO BIDWM #60 tab 08/21/16 Polyethylene Glycol 3350 [Miralax 119 gm Btl -] 17 gm PO DAILY #20 bottle Family Disease History - Family Disease History Family History: Unable to Obtain Other Family History: colon cancer family history per the chart Review of Systems Unable to obtain ROS, reason: Patient demented Physical Exam-GI Vital Signs: Vital Signs Temperature 98.0 F 08/24/16 06:00 Pulse Rate 70 08/24/16 06:00 Respiratory Rate 20 08/24/16 06:00 Blood Pressure 106/68 08/24/16 06:00 O2 Sat by Pulse Oximetry (%) 95 08/23/16 20:55 Constitutional: Yes: Calm Eyes: No: Sclera Icterus Cardiovascular: Yes: Regular Rate and Rhythm Respiratory: Yes: Diminished (at bases, poor inspiratory effort) Gastrointestinal Inspection: No: Distention, Scars ...Auscultate: Yes: Normoactive Bowel Sounds ...Palpate: No: Tenderness (no grimacing upon palpation) Edema: Yes (trace LE edema) Neurological: Yes: Alert, Confusion Labs: CBC, BMP 08/24/16 05:45 08/24/16 05:45 INR, PTT INR 1.20 (0.82-1.09) H 08/17/16 20:35 Problem List - Problems (1) Elevated liver enzymes Assessment/Plan: Asymptomatic as the patient is devoid of RUQ pain upon palpation. I question if part of the rise in her liver chemistries are from resorption of hematoma from recent hip fracture. ? if component of rhabdo, and possibly medication related Plan: Avoid hepatotoxic agents: Statin, APAP and Abx have been discontinued If ALP and bilirubin continue to rise, consider MRCP to exclude CBD pathology Added CPK on to AM labs Monitor LFTs Code(s): R74.8 - ABNORMAL LEVELS OF OTHER SERUM ENZYMES
[2016-08-24] MEDS ORDERED: traMADol HCL 50 MG TABLET PO ONE (13:00)
[2016-08-24] MEDS: POLYETHYLENE GLYCOL 3350 119 GM BTL PO SCH (13:48)
[2016-08-24] MEDS: DONEPEZIL HCL 10 MG TABLET (FP) PO SCH (21:24)
[2016-08-25] MEDS: risperiDONE 0.5 MG TABLET (FP) PO SCH ×3 (05:55→21:08)
[2016-08-25] MEDS: DEXTROSE 5%-0.45% SALINE 1,000 ML IV SCH ×4 (05:55→17:49)
[2016-08-25] MEDS: DOCUSATE SODIUM 100 MG CAPSULE (FP) PO SCH ×2 (05:57→14:36)
[2016-08-25] MEDS: LEVOTHYROXINE NA 25 MCG TABLET (FP) PO SCH (05:59)
[2016-08-25 07:18] LABS: ANION GAP 7 (8-16); BILIRUBIN,TOTAL 0.8 mg/dL (0.2-1.0); CALCIUM 8.5 mg/dL (8.5-10.1); CO2 31 mmol/L (21-32); CREATININE 0.3 mg/dL (0.55-1.02); GLUCOSE,RANDOM 104 mg/dL (74-106); SGOT/AST 78 U/L (15-37); SGPT/ALT 145 U/L (12-78)
[2016-08-25 07:20] LABS: ALK PHOS 162 U/L (45-117); TOT PROT 4.6 g/dl (6.4-8.2)
[2016-08-25] MEDS ORDERED: PT OWN MED DRAWER 7, Y5N ONE ×2 (09:18→21:01)
--- NOTE | 2016-08-25 09:22 | PN ---
Progress Note (short form) - Note Progress Note: Subjective: The patient was seen and examined at the bedside, she has no complaints today AST/ALT/total bili decreased Alkphos increased Awaiting callback from Dr. Matias re: MRCP? Current Medications Generic Name Dose Route Start Last Admin Trade Name Lacie PRN Reason Stop Dose Admin Calcium Carbonate/Cholecalciferol 1 tab 08/19/16 22:00 08/24/16 21:24 Os-Constantino 500+D - PO 1 tab BID KOKI Administration Docusate Sodium 100 mg 08/19/16 22:00 08/25/16 05:57 Colace - PO 100 mg TID KOKI Administration Donepezil HCl 10 mg 08/19/16 22:00 08/24/16 21:24 Aricept - PO 10 mg HS KOKI Administration Enoxaparin Sodium 40 mg 08/20/16 10:00 08/24/16 10:19 Lovenox - SQ 40 mg DAILY KOKI Administration Ferrous Sulfate 325 mg 08/20/16 08:00 08/24/16 18:01 Feosol - PO 325 mg BIDWM KOKI Administration Lactated Ringer's 1,000 mls @ 75 mls/hr 08/19/16 17:00 08/21/16 17:12 Lactated Ringers Solution IV Not Given ASDIR KOKI Dextrose/Sodium Chloride 1,000 mls @ 100 mls/hr 08/19/16 17:10 08/25/16 05:55 D5-1/2ns - IV 100 mls/hr ASDIR KOKI Administration Levothyroxine Sodium 12.5 mcg 08/20/16 07:00 08/25/16 05:59 Synthroid - PO 12.5 mcg DAILY@0700 KOKI Administration Memantine 10 mg 08/19/16 22:00 08/24/16 21:24 Namenda - PO 10 mg BID KOKI Administration Polyethylene Glycol 17 gm 08/21/16 10:00 08/24/16 13:48 Miralax (For Daily Use) - PO 17 mg DAILY KOKI Administration Risperidone 0.5 mg 08/19/16 22:00 08/25/16 05:55 Risperdal - PO 0.5 mg TID KOKI Administration Objective: Vital Signs Period Temp Pulse Resp BP Sys/Christie Pulse Ox Last 24 Hr 98.2 F-99.1 F 72-111 17-20 104-154/53-93 97 Physical Exam: General: NAD Lungs: CTA bilaterally Heart: RRR, S1S2 Abd: Soft, non-tender, non-distended. Normoactive bowel sounds Ext: RLE with dressing, dried blood present on proximal dressing. 2+ DP/PT bilaterally Neuro: CN 2-12 intact CBCD WBC 8.7 K/mm3 (4.0-10.0) 08/24/16 05:45 RBC 2.80 M/mm3 (3.60-5.2) L 08/24/16 05:45 Hgb 8.5 GM/dL (10.7-15.3) L 08/24/16 05:45 Hct 25.3 % (32.4-45.2) L 08/24/16 05:45 MCV 90.3 fl (80-96) 08/24/16 05:45 MCHC 33.8 g/dl (32.0-36.0) 08/24/16 05:45 RDW 14.5 % (11.6-15.6) 08/24/16 05:45 Plt Count 314 K/MM3 (134-434) D 08/24/16 05:45 MPV 8.2 fl (7.5-11.1) 08/24/16 05:45 CMP Sodium 143 mmol/L (136-145) 08/25/16 06:05 Potassium 4.0 mmol/L (3.5-5.1) 08/25/16 06:05 Chloride 105 mmol/L (98-107) 08/25/16 06:05 Carbon Dioxide 31 mmol/L (21-32) 08/25/16 06:05 Anion Gap 7 (8-16) L 08/25/16 06:05 BUN 12 mg/dL (7-18) 08/25/16 06:05 Creatinine 0.3 mg/dL (0.55-1.02) L 08/25/16 06:05 Creat Clearance w eGFR > 60 (>60) 08/25/16 06:05 Random Glucose 104 mg/dL (74-106) 08/25/16 06:05 Calcium 8.5 mg/dL (8.5-10.1) 08/25/16 06:05 Total Bilirubin 0.8 mg/dL (0.2-1.0) 08/25/16 06:05 AST 78 U/L (15-37) H D 08/25/16 06:05 ALT 145 U/L (12-78) H 08/25/16 06:05 Alkaline Phosphatase 162 U/L (45-117) H 08/25/16 06:05 Total Protein 4.6 g/dl (6.4-8.2) L 08/25/16 06:05 Albumin 2.0 g/dl (3.4-5.0) L 08/25/16 06:05 CARDIAC ENZYMES Creatine Kinase 65 IU/L (26-192) 08/24/16 05:45 Troponin I < 0.02 ng/ml (0.00-0.05) 08/18/16 12:00 Microbiology 08/21/16 23:15 Blood - Peripheral Venous Blood Culture - Preliminary NO GROWTH OBTAINED AFTER 48 HOURS, INCUBATION TO CONTINUE FOR 3 DAYS. 08/21/16 23:15 Blood - Peripheral Venous Blood Culture - Preliminary NO GROWTH OBTAINED AFTER 48 HOURS, INCUBATION TO CONTINUE FOR 3 DAYS. 08/18/16 12:00 Blood - Peripheral Venous Blood Culture - Final NO GROWTH AFTER 5 DAYS INCUBATION 08/18/16 12:15 Blood - Peripheral Venous Blood Culture - Final NO GROWTH AFTER 5 DAYS INCUBATION 08/17/16 20:14 Urine - Urine - Catheterized Urine Culture - Final NO GROWTH OBTAINED Imagin08/17/[address]: No evidence of acute intracranial pathology 08/17/2016 Hip/Pelvis CT 08/17/2016: acute right intertrochanteric fracture 08/17/2016 Chest Xray: no evidence of acute pulmonary disease Assessment: This is a 76 female with PMHx of advanced dementia, cardiac catherization 2011, bilateral knee replacement, tubal ligation, hypothyroidism, HLD, asthma and GERD who presented to the ED s/p fall and was found to have a right intertrochanteric fracture. Plan: 1) Ortho: POD 6, right hip IM nail - S/p 1u PRBC on 08/22 - Hgb stable - Pain management - Lovenox - Physical therapy - Will need SNF - Appreciate ortho consult 2) ID: Afebrile - Repeat cultures with NGTD - Incentive spirometer - Chest X-ray with no evidence of acute pulmonary disease - Continue to monitor off abx 3) GI: Transaminitis - Possibly 2/2 Ancef vs. Acetaminophen vs. Lipitor - AST/ALT/total bili decreasing - Alk phos increasing - Awaiting call back from GI re: MRCP? - Appreciate GI consult 4) Cardiology: S/p cardiac cath 2011 - Hold ASA until cleared by surgery - Continue Lipitor 5) F/E/N: - Regular diet - Monitor electrolytes 6) Prophylaxis: - On Lovenox 7) Dispo: - Requires continued inpatient care CODE STATUS: FULL CODE Visit type - Emergency Visit Emergency Visit: Yes ED Registration Date: 08/17/16 Care time: The patient presented to the Emergency Department on the above date and was hospitalized for further evaluation of their emergent condition. - New Patient This patient is new to me today: No - Critical Care Critical Care patient: No
[2016-08-25] MEDS: CALCIUM 500MG/VIT-D 200 UNITS COMBO TABLET (FP) PO SCH ×2 (09:25→21:08)
[2016-08-25] MEDS: FERROUS SO4 325 MG TABLET (FP) PO SCH ×2 (09:25→17:26)
[2016-08-25] MEDS: ENOXAPARIN NA (PORCINE) 40 MG/0.4 ML DISP.SYRIN SQ SCH (09:25)
[2016-08-25] MEDS: POLYETHYLENE GLYCOL 3350 119 GM BTL PO SCH (09:25)
[2016-08-25] MEDS: MEMANTINE HCL 10 MG TABLET (FP) PO SCH ×2 (09:25→21:08)
[2016-08-25] MEDS ORDERED: DOCUSATE NA 100 MG/10 ML UNIT-DOSE CUPS PO PRN (15:51)
[2016-08-25] MEDS: LACTATED RINGERS SOLUTION 1,000 ML IV SCH (17:19)
--- NOTE | 2016-08-25 17:27 | PN ---
Progress Note (short form) - Note Progress Note: No acute events Patient could not have MRCP today due to the fact that she is recently post-op Found sitting in wheelchair in [place] with her family No overt bleeding reported - At this point, would observe liver chemistries. If they rise in an obstructive pattern, further evaluation of CBD would need to be considered however this would require invasive testing, something the family is not eager to have Ms. Joseph undergo. Otherwise, follow-up as an outpatient should be arranged. She has seen Dr. Mike Pop in the past. That would be one option as I am not currently seeing outpatients. - Check Stool for occult blood Problem List - Problems (1) Elevated liver enzymes Code(s): R74.8 - ABNORMAL LEVELS OF OTHER SERUM ENZYMES
--- NOTE | 2016-08-25 20:48 | PN ---
Progress Note (short form) - Note Progress Note: Pt lying comf in bed af vss RLE dressings cdi calves soft nt limited NV exam due to pt MS but grossly intact A/p: R hip IM nail -cont PT -wbat -DVT proph x 1 mo postop -pain control -ok for dc from ortho standpoint -suture removal in 1-2 weeks
[2016-08-25] MEDS: DONEPEZIL HCL 10 MG TABLET (FP) PO SCH (21:08)
[2016-08-26] MEDS ORDERED: PT OWN MED DRAWER 7, Y5N ONE ×2 (06:14→09:03)
[2016-08-26] MEDS: risperiDONE 0.5 MG TABLET (FP) PO SCH ×2 (06:27→14:32)
[2016-08-26] MEDS: LEVOTHYROXINE NA 25 MCG TABLET (FP) PO SCH (06:27)
[2016-08-26 08:07] LABS: MCH 31.5 pg (25.7-33.7); MCHC 34.6 g/dl (32.0-36.0); MEAN CELL VOLUME 91.1 fl (80-96); MEAN PLT VOLUME 7.9 fl (7.5-11.1); PLATELET COUNT 376 K/MM3 (134-434); RDW 14.4 % (11.6-15.6); WHITE BLOOD COUNT 7.2 K/mm3 (4.0-10.0)
[2016-08-26 08:31] LABS: ALBUMIN 2.1 g/dl (3.4-5.0); BILIRUBIN,DIRECT 0.2 mg/dL (0.0-0.2); BILIRUBIN,TOTAL 0.8 mg/dL (0.2-1.0); TOT PROT 4.8 g/dl (6.4-8.2)
[2016-08-26] MEDS ORDERED: traMADol HCL 50 MG TABLET PO PRN (09:04)
[2016-08-26] MEDS: MEMANTINE HCL 10 MG TABLET (FP) PO SCH (09:23)
[2016-08-26] MEDS: FERROUS SO4 325 MG TABLET (FP) PO SCH (09:23)
[2016-08-26] MEDS: ENOXAPARIN NA (PORCINE) 40 MG/0.4 ML DISP.SYRIN SQ SCH (09:23)
[2016-08-26] MEDS: CALCIUM 500MG/VIT-D 200 UNITS COMBO TABLET (FP) PO SCH (09:23)
[2016-08-26] MEDS: POLYETHYLENE GLYCOL 3350 119 GM BTL PO SCH (09:24)
[2016-08-26] MEDS ORDERED: MAGNESIUM CITRATE 300 ML BOTTLE PO ONE (10:10)
--- NOTE | 2016-08-26 10:15 | PN ---
Physical Exam: SUBJECTIVE: Patient seen and examined. Offers no specific complaints, but is disoriented. OBJECTIVE: Pulled out IV access for the 3rd time. Vital Signs Period Temp Pulse Resp BP Sys/Christie Pulse Ox Last 24 Hr 97.6 F-99.1 F 87-94 18-18 100-109/54-69 97 GENERAL: The patient is awake, alert, oriented x 1. EYES: PERRL, extraocular movements intact, sclera anicteric, conjunctiva clear. No ptosis. ENT: Ears normal, nares patent, oropharynx clear without exudates, moist mucous membranes. NECK: Trachea midline, full range of motion, supple. LUNGS: Breath sounds equal, clear to auscultation bilaterally, no wheezes, no crackles, no accessory muscle use. HEART: Regular rate and rhythm, S1, S2 without murmur, rub or gallop. ABDOMEN: Soft, nontender, nondistended, normoactive bowel sounds, no guarding, no rebound, no hepatosplenomegaly, no masses. EXTREMITIES: 2+ pulses, warm, well-perfused, no edema. Right hip dressing clean , dry, intact. NEUROLOGICAL: Cranial nerves II through XII grossly intact. Normal speech, gait not observed. PSYCH: Normal mood, normal affect. SKIN: Warm, dry, normal turgor, no rashes or lesions noted Laboratory Results - last 24 hr 08/22/16 08/26/16 08/26/16 06:45 07:00 07:00 WBC 7.2 RBC 2.64 L Hgb 8.3 L Hct 24.0 L MCV 91.1 MCH 31.5 MCHC 34.6 RDW 14.4 Plt Count 376 MPV 7.9 Total Bilirubin 0.8 Direct Bilirubin 0.2 AST 68 H ALT 133 H Alkaline Phosphatase 203 H D Total Protein 4.8 L Albumin 2.1 L Blood Type A POSITIVE Antibody Screen Negative Crossmatch See Detail Active Medications Generic Name Dose Route Start Last Admin Trade Name Freq PRN Reason Stop Dose Admin Calcium Carbonate/Cholecalciferol 1 tab 08/19/16 22:00 08/26/16 09:23 Os-Constantino 500+D - PO 1 tab BID KOKI Administration Docusate Sodium 100 mg 08/25/16 15:51 08/26/16 09:25 Colace Liquid - PO 100 mg TID PRN Administration CONSTIPATION Donepezil HCl 10 mg 08/19/16 22:00 08/25/16 21:08 Aricept - PO 10 mg HS KOKI Administration Enoxaparin Sodium 40 mg 08/20/16 10:00 08/26/16 09:23 Lovenox - SQ 40 mg DAILY KOKI Administration Ferrous Sulfate 325 mg 08/20/16 08:00 08/26/16 09:23 Feosol - PO 325 mg BIDWM KOKI Administration Levothyroxine Sodium 12.5 mcg 08/20/16 07:00 08/26/16 06:27 Synthroid - PO 12.5 mcg DAILY@0700 KOKI Administration Magnesium Citrate 300 ml 08/26/16 10:10 Citroma - PO 08/26/16 10:11 ONCE ONE Memantine 10 mg 08/19/16 22:00 08/26/16 09:23 Namenda - PO 10 mg BID KOKI Administration Polyethylene Glycol 17 gm 08/21/16 10:00 08/26/16 09:24 Miralax (For Daily Use) - PO 17 grams DAILY KOKI Administration Risperidone 0.5 mg 08/19/16 22:00 08/26/16 06:27 Risperdal - PO 0.5 mg TID KOKI Administration Tramadol HCl 50 mg 08/26/16 09:04 08/26/16 09:26 Ultram - PO 50 mg Q8H PRN Administration PAIN ASSESSMENT/PLAN: 08/17/[address]: No evidence of acute intracranial pathology 08/17/2016 Hip/Pelvis CT 08/17/2016: acute right intertrochanteric fracture 08/17/2016 Chest Xray: no evidence of acute pulmonary disease Assessment: This is a 76 female with PMHx of advanced dementia, cardiac catherization 2011, bilateral knee replacement, tubal ligation, hypothyroidism, HLD, asthma and GERD who presented to the ED s/p fall and was found to have a right intertrochanteric fracture. Plan: 1) Ortho: POD 6, right hip IM nail - S/p 1u PRBC on 08/22 - Hgb stable, stool occult negative - Pain management - Lovenox - Physical therapy - Will need SNF - Appreciate ortho consult 2) ID: Afebrile - Repeat cultures with NGTD - Incentive spirometer - Chest X-ray with no evidence of acute pulmonary disease - Continue to monitor off abx 3) GI: Transaminitis - Possibly 2/2 Ancef vs. Acetaminophen vs. Lipitor - AST/ALT/total bili decreasing - Alk phos still increasing - Unable to undergo MRCP to further evaluate CBD until 2 weeks post-op - Appreciate GI consult 4) Cardiology: S/p cardiac cath 2011 - Hold ASA until cleared by surgery - Continue Lipitor 5) F/E/N: - Regular diet - Monitor electrolytes 6) Prophylaxis: - On Lovenox DISPO: If ok with GI, would like to send to SNF and monitor LFTs there, have patient return for MRCP as outpatient if not resolving. CODE STATUS: FULL CODE
--- NOTE | 2016-08-26 10:21 | PN ---
GI Progress Note Subjective: No acute events No abdominal pain - Objective Vital Signs: Vital Signs Temperature 97.6 F 08/26/16 07:51 Pulse Rate 87 08/26/16 07:51 Respiratory Rate 18 08/26/16 07:51 Blood Pressure 106/63 08/26/16 07:51 O2 Sat by Pulse Oximetry (%) 97 08/25/16 21:00 Constitutional: Calm Eyes: No: Sclera Icterus Respiratory: Yes: Diminished (at bases b/l, ;poor inspiratory effort) Gastrointestinal Inspection: No: Distention ...Auscultate: Yes: Normoactive Bowel Sounds ...Palpate: No: Tenderness ...Percussion: No: Tympanitic ...Rectal Exam: Yes: Other (No external lesions, no masses palpated. copious firm impacted light brown stool. Specimen obtained for occult blood and manually disimpacted Ms. Joseph.) Neurological: Yes: Other (Awake, confused) Labs: CBC, BMP 08/26/16 07:00 08/25/16 06:05 INR, PTT INR 1.20 (0.82-1.09) H 08/17/16 20:35 Hepatic Panel Total Bilirubin 0.8 mg/dL (0.2-1.0) 08/26/16 07:00 Direct Bilirubin 0.2 mg/dL (0.0-0.2) 08/26/16 07:00 AST 68 U/L (15-37) H 08/26/16 07:00 ALT 133 U/L (12-78) H 08/26/16 07:00 Alkaline Phosphatase 203 U/L (45-117) H D 08/26/16 07:00 Albumin 2.1 g/dl (3.4-5.0) L 08/26/16 07:00 Problem List - Problems (1) Elevated liver enzymes Assessment/Plan: Asymptomatic Transaminases continue to improve, alp elevated. ? if medication induced, related to ALP release from right hip fracture. CBD mildly distended on US however it appears to have been the same size when compared to CT scan from 2011. Cannot have MRCP at this time as she is recently post-op. Continue to monitor LFT's for now. Code(s): R74.8 - ABNORMAL LEVELS OF OTHER SERUM ENZYMES (2) Fecal impaction in rectum Assessment/Plan: Patient manually disimpacted today Mineral oil enemas daily for 3 days MiraLAX 17g PO BID Code(s): K56.41 - FECAL IMPACTION
[2016-08-26] MEDS ORDERED: MINERAL OIL ENEMA 133 ML ENEMA PR ONE (11:32)
--- NOTE | 2016-08-26 13:21 | DS ---
Physical Exam: SUBJECTIVE: Patient seen and examined. Feels well, no complaints. OBJECTIVE: Vital Signs Period Temp Pulse Resp BP Sys/Christie Pulse Ox Last 24 Hr 97.6 F-99.1 F 87-94 18-18 100-109/54-69 97 PHYSICAL EXAM GENERAL: The patient is awake, alert, oriented x 1. HEAD: Normal with no signs of trauma. EYES: PERRL, extraocular movements intact, sclera anicteric, conjunctiva clear. ENT: Ears normal, nares patent, oropharynx clear without exudates, moist mucous membranes. NECK: Trachea midline, full range of motion, supple. LUNGS: Breath sounds equal, clear to auscultation bilaterally, no wheezes, no crackles, no accessory muscle use. HEART: Regular rate and rhythm, S1, S2 without murmur, rub or gallop. ABDOMEN: Soft, nontender, nondistended, normoactive bowel sounds, no guarding, no rebound, no hepatosplenomegaly, no masses. EXTREMITIES: 2+ pulses, warm, well-perfused, no edema. Right hip dressing clean , dry, intact. NEUROLOGICAL: Cranial nerves II through XII grossly intact. Normal speech, gait not observed. PSYCH: Normal mood, normal affect. SKIN: Warm, dry, normal turgor, no rashes or lesions noted. LABS Laboratory Results - last 24 hr 08/26/16 08/26/16 08/26/16 07:00 07:00 10:15 WBC 7.2 RBC 2.64 L Hgb 8.3 L Hct 24.0 L MCV 91.1 MCH 31.5 MCHC 34.6 RDW 14.4 Plt Count 376 MPV 7.9 Total Bilirubin 0.8 Direct Bilirubin 0.2 AST 68 H ALT 133 H Alkaline Phosphatase 203 H D Total Protein 4.8 L Albumin 2.1 L Stool Occult Blood Negative HOSPITAL COURSE: This is a 76 y/o female with a history of Alzheimer's dementia , CAD s/p cardiac catherization 2011, bilateral knee replacement, tubal ligation , hypothyroidism, HLD, asthma and GERD brought into the ED on 08/17 s/p unwitnessed fall at her SNF, complaining of right hip pain. ED course was notable for: (1) CT Head- No acute ICH, chronic microvascular changes (2) Xray Pelvis/Hip: Comminuted Right Intertrochanteric Fx (3) WBC 18.2 Hospital course was notable for: (1) Underwent right hip IM nail on 08/19 (2) Acute posthemorrhagic anemia s/p surgery: Hgb dropped to 6.9 on 08/22; patient was transfused 1 unit PRBC with appropriate increase in hgb (3) Stool for occult blood negative (4) Developed transaminitis (particularly elevated alk phos)- did not improve significantly with discontinuation of Tylenol and Ancef; evaluated by GI (5) Constipation requiring manual disimpaction and bowel regimen Plan: -Anemia: stable, continue iron supplementation -Constipation: Mineral oil enema daily x 3 days, Miralax bid -Hip fracture: PT, pain management (recommend Ultram), continue Lovenox -Transaminitis: recommend following labs; if LFTs particularly alk phos uptrending, will need outpatient MRCP. Patient has seen Dr. Mike Pop in the past and could follow with him. Date of Admission:08/17/16 Date of Discharge: 08/26/16 Minutes to complete discharge: 35 Discharge Summary Reason For Visit: FRACTURE OF THE RIGHT HIP Current Active Problems Elevated liver enzymes (Acute) Fecal impaction in rectum (Acute) Fracture of hip, right, closed (Acute) Condition: Improved - Instructions Diet, Activity, Other Instructions: Hip fracture: -Continue Lovenox 40mg sq daily through 09/21/2016 for DCT prophylaxis Abnormal liver function tests: -Continue to monitor -If persistently elevated or uptrending (particularly alk phos), schedule outpatient MRCP for evaluation of common bile duct -Follow up with Dr. Mike Pop (gastroenterology) Constipation: -Mineral oil enemas daily for 3 days -Continue colace -Miralax twice daily Return to the ED for any new or concerning symptoms. Referrals: Mike Pop MD [Staff Physician] - 1 Week Disposition: [facility] - Home Medications Comprehensive Discharge Medication List: Ambulatory Orders Acetaminophen [Tylenol .Extra-Strength -] 500 mg PO BID PRN 08/17/16 Atorvastatin Ca [Lipitor] 10 mg PO HS 08/17/16 Donepezil HCl [Aricept -] 10 mg PO HS 08/17/16 Ergocalciferol (Vitamin D2) [Vitamin D2] 2,000 unit PO DAILY 08/17/16 Fluticasone Propionate [Flovent Diskus] 100 mcg IH DAILY 08/17/16 Levothyroxine [Synthroid -] 12.5 mcg PO DAILY 08/17/16 Memantine HCl [Namenda -] 10 mg PO BID 08/17/16 Multivitamin [Poly-Vitamin] 1 each PO DAILY 08/17/16 Risperidone [Risperdal -] 0.5 mg PO TID 08/17/16 Calcium 500Mg/Vit-D 200 Units [Os-Constantino 500+D -] 1 tab PO BID tab 08/21/16 Docusate Sodium [Colace -] 100 mg PO TID #120 tab 08/21/16 Ferrous Sulfate [Feosol] 325 mg PO BIDWM #60 tab 08/21/16 Aspirin [Aspirin EC] 325 mg PO DAILY #30 tablet. 08/26/16 Mineral Oil Enema [Fleet Mineral Oil Rectal Enema -] 133 ml IA DAILY #3 supp.rect 08/26/16 Polyethylene Glycol 3350 [Miralax 119 gm Btl -] 17 gm PO BID #6 bottle 08/26/16 Tramadol HCl [Ultram -] 50 mg PO Q8H PRN #30 tablet MDD 3 tabs 08/26/16 This patient is new to me today: No Emergency Visit: Yes ED Registration Date: 08/17/16 Care time: The patient presented to the Emergency Department on the above date and was hospitalized for further evaluation of their emergent condition. Critical Care patient: No - Discharge Referral Referred to [facility] Med P.C.: No
[2016-08-26 14:20] VITALS: BP 120/54; PULSE 88; TEMP 98.2
[2016-08-26] MEDS ORDERED: POLYETHYLENE GLYCOL 3350 119 GM BTL PO SCH (22:00)
[2016-08-27] MEDS ORDERED: MINERAL OIL ENEMA 133 ML ENEMA PR SCH (10:00)
== END 2016-08-26 17:29 | DRG 481 ==
LOC: JER 18:29 → JERBED 23:10 → J6S 08-18 02:02
PROVIDERS: ADMIT Internal Medicine; ATTEND Registered Nurse Emergency
PROC: 0QS606Z Reposition Right Upper Femur with Intramedullary Internal Fixation Device, Open Approach (ICD-10-PCS; principal; 2016-08-19 15:00)
PROC: 30233N1 Transfusion of Nonautologous Red Blood Cells into Peripheral Vein, Percutaneous Approach (ICD-10-PCS; 2016-08-22)
DX: S72.141A Displaced intertrochanteric fracture of right femur, initial encounter for closed fracture (principal); D62 Acute posthemorrhagic anemia; G30.8 Other Alzheimer's disease; F02.80 Dementia in other diseases classified elsewhere, unspecified severity, without behavioral disturbance, psychotic disturbance, mood disturbance, and anxiety; E03.9 Hypothyroidism, unspecified; E78.5 Hyperlipidemia, unspecified; J45.909 Unspecified asthma, uncomplicated; K21.9 Gastro-esophageal reflux disease without esophagitis; D72.828 Other elevated white blood cell count; M16.10 Unilateral primary osteoarthritis, unspecified hip; W18.39XA Other fall on same level, initial encounter; Y93.89 Activity, other specified; Y92.098 Other place in other non-institutional residence as the place of occurrence of the external cause; R74.0 Nonspecific elevation of levels of transaminase and lactic acid dehydrogenase [LDH]; K76.89 Other specified diseases of liver; I48.91 Unspecified atrial fibrillation; K56.41 Fecal impaction; Z95.5 Presence of coronary angioplasty implant and graft; Z96.653 Presence of artificial knee joint, bilateral
CPT/HCPCS: 36415; 36430; 70450-TC; 71010-TC; 73523-TC; 76000-TC; 76705-TC; 80048; 80053; 80076; 81003; 82272; 82550; 84484; 85025; 85027; 85610; 86850; 86900; 86901; 86922; 87040; 87086; 93005; 93010; 94760; 97116-GP; 97162-GP; 99283-25; P9038; P9058